=== PATIENT | female | born 1965 | race African-American/Black ===

== ENCOUNTER 2022-04-23 09:06 | Outpatient (CLI) | payer OTHER, SELFPAY ==
--- NOTE | ~2022-04-23 | US_ITS ---
EXAMINATION: US thyroid DATE: 04/23/2022 09:43 INDICATION: Goiter TECHNIQUE: Multiple ultrasound images of the thyroid were obtained. COMPARISON: None. FINDINGS: The right thyroid lobe measures 5.8 x 2.5 x 2.8 cm. The left thyroid lobe measures 5.9 x 2.2 x 2.6 c m. There are multiple thyroid nodules with similar imaging features which are wider than tall, hypoe choic predominantly solid with smooth margins and without echogenic foci (TI-RADS 4, moderately suspi cious , FNA if >=1.5 cm, annual followup is >=1 cm). The largest nodules measure 2.0 cm nodule in the inferior right thyroid and 2.4 cm nodule in the left thyroid identified. There are couple additional subcentimeter nodules measuring 8 mm the inferior most right thyroid lobe and 4 mm the thyroid isthm us. There is normal echotexture, echogenicity and vascular flow throughout the surrounding thyroid gl and. IMPRESSION: 1. There are a few TI RADS 4 thyroid nodules the largest 2 measuring 2.0 cm in the right thyroid and 2.4 cm in the left thyroid which meet criteria for biopsy which would be recommended. Reviewed, dictated and finalized at location A. ER DEVELOPMENT COORDINATOR/TEACHER
[2022-04-23 10:16] LABS: Creatinine Urine 147.5 mg/dL
[2022-04-23 10:18] LABS: Hemoglobin A1C 8.7 % (<5.7)
[2022-04-23 10:21] LABS: MALB Creatinine Ratio 5.2 mg/g (0-30); Microalbumin Urine Random 7.6 mg/L (0-16.7)
[2022-04-23 10:27] LABS: Albumin Level 4.7 g/dL (3.5-5.1); Alkaline Phosphatase 74 U/L (38-126); Aspartate Amino Transferase 21 U/L (14-36); Bilirubin,Total 0.4 mg/dL (0.2-1.3); Blood Urea Nitrogen 15 mg/dL (7-17); Calcium 9.2 mg/dL (8.4-10.2); Carbon Dioxide 27 mmol/L (22-30); Cholesterol 88 mg/dL (0-200); Estimated Glomerular Filt Rate > 60; Glucose 157 mg/dL (65-110); HDL Direct 41 mg/dL; Triglycerides 99 mg/dL (<150)
[2022-04-23 10:45] LABS: Alanine Aminotransferase 19 U/L (6-35); Anion Gap 8 mmol/L (8-16); Chloride 104 mmol/L (98-107); Potassium 4.2 mmol/L (3.4-5.0); Sodium 139 mmol/L (137-145)
[2022-04-23 11:39] LABS: LDL Cholesterol Direct < 30 mg/dL
== END 2022-04-23 09:07 | disposition home or self-care (01) ==
PROVIDERS: PCP Internal Medicine Infectious Disease; Visit Provider Internal Medicine Endocrinology, Diabetes & Metabolism
DX: E04.9 Nontoxic goiter, unspecified (principal); E11.65 Type 2 diabetes mellitus with hyperglycemia; E78.5 Hyperlipidemia, unspecified
CPT/HCPCS: 36415; 76536; 80053; 80061; 82043; 83036; 84439; 84443

== ENCOUNTER 2022-07-02 07:33 | Outpatient (CLI) | payer OTHER, SELFPAY ==
--- NOTE | 2022-07-02 | EST_ITS ---
Patient Info Name: Eliana Bender Age: 57 years : 1965 Gender: Female Ht: 64 in Wt: 193 lbs BSA: 2.02 m2 HR: 85 bpm BP: 128 / 68 mmHg Heart Rhythm: Sinus Rhythm Exam Date: 07/02/2022 7:48 AM Exam Location: [facility] Stress Patient Status: Outpatient Admit Date: 07/02/2022 Staff Ordering Physician: EliceoYen MD Attending Provider: EliceoYen MD Exercise Technologist: Shantell Del Rosario CT Nurse: SANDHYA CHING Exam Type: CA stress test treadmill Study Info Indications - DIABETES A treadmill exercise stress test was performed. Summary 1. No abnormal ST/T wave changes diagnostic of ischemia with exercise. 2. Single PVC noted during stress. 3. Exercise capacity fair to good at 6-10 METS. 4. Hypertensive blood pressure response during exercise. Protocol: Min Stress ECG Details Stage: REST Duration (min): 1 min : 26 sec Speed (mph): 0.0 Grade (%): 0 HR (bpm): 82 SBP (mmHg): 128 DBP (mmHg): 68 METS: --- Stage: REST Duration (min): 41 min : 57 sec Speed (mph): 0.0 Grade (%): 0 HR (bpm): 78 SBP (mmHg): 128 DBP (mmHg): 68 METS: --- Stage: STAGE 1 Duration (min): 1 min : 0 sec Speed (mph): 1.7 Grade (%): 10 HR (bpm): 112 SBP (mmHg): 128 DBP (mmHg): 68 METS: --- Stage: STAGE 1 Duration (min): 2 min : 0 sec Speed (mph): 1.7 Grade (%): 10 HR (bpm): 120 SBP (mmHg): 128 DBP (mmHg): 68 METS: --- Stage: STAGE 1 Duration (min): 3 min : 0 sec Speed (mph): 1.7 Grade (%): 10 HR (bpm): 125 SBP (mmHg): 153 DBP (mmHg): 84 METS: --- Stage: STAGE 2 Duration (min): 1 min : 0 sec Speed (mph): 2.5 Grade (%): 12 HR (bpm): 132 SBP (mmHg): 153 DBP (mmHg): 84 METS: --- Stage: STAGE 2 Duration (min): 2 min : 0 sec Speed (mph): 2.5 Grade (%): 12 HR (bpm): 138 SBP (mmHg): 153 DBP (mmHg): 84 METS: --- Stage: STAGE 2 Duration (min): 3 min : 0 sec Speed (mph): 2.5 Grade (%): 12 HR (bpm): 142 SBP (mmHg): 207 DBP (mmHg): 89 METS: --- Stage: RECOVERY Duration (min): 0 min : 59 sec Speed (mph): 0.0 Grade (%): 0 HR (bpm): 112 SBP (mmHg): 207 DBP (mmHg): 89 METS: --- Stage: RECOVERY Duration (min): 1 min : 59 sec Speed (mph): 0.0 Grade (%): 0 HR (bpm): 96 SBP (mmHg): 207 DBP (mmHg): 89 METS: --- Stage: RECOVERY Duration (min): 2 min : 59 sec Speed (mph): 0.0 Grade (%): 0 HR (bpm): 95 SBP (mmHg): 132 DBP (mmHg): 81 METS: --- Stage: RECOVERY Duration (min): 3 min : 1 sec Speed (mph): 0.0 Grade (%): 0 HR (bpm): 96 SBP (mmHg): 132 DBP (mmHg): 81 METS: --- Rest HR: 78 bpm Peak HR: 143 bpm Rest Sys BP: 128 mmHg Peak Sys BP: 207 mmHg Max Pred HR: 161 bpm % Max Pred HR: 89 % Target HR: 137 bpm Max RPP:
== END 2022-07-02 07:34 | disposition home or self-care (01) ==
LOC: ANHCARD 07:36
PROVIDERS: PCP Internal Medicine Infectious Disease; Visit Provider Internal Medicine Endocrinology, Diabetes & Metabolism
DX: Z91.89 Other specified personal risk factors, not elsewhere classified (principal)
CPT/HCPCS: 93017

== ENCOUNTER 2022-07-04 09:36 | Outpatient (CLI) | payer OTHER, SELFPAY ==
--- NOTE | ~2022-07-04 | US_ITS ---
EXAMINATION: 1. US FNA w image guidance 2. US FNA additional DATE: 07/04/2022 10:55 INDICATION: Multinodular goiter. TECHNIQUE: The procedure and its benefits and risks were discussed with the patient. Risks specifically discusse d included bleeding. The patient verbalized understanding of the risks and agreed to proceed. The nec k was prepped and draped in the usual sterile manner. 1% lidocaine was used for local anesthesia. 6 passes were made with a 25G needle into the lesion in right thyroid lobe under ultrasound guidance. 6 passes were made with a 25-gauge needle into the lesion in left thyroid lobe under ultrasound tori nce. There were no immediate complications. FINDINGS: Grayscale ultrasound images demonstrate needles advanced into a 2.0 cm nodule in right thyroid lobe f or biopsy. Grayscale ultrasound images demonstrate needles advanced into a 2.4 cm nodule in left thyr oid lobe for biopsy. IMPRESSION: 1. Ultrasound-guided fine needle aspiration of a right thyroid nodule. 2. Ultrasound-guided fine-needle aspiration of a left thyroid nodule. Reviewed, dictated and finalized at location A. ONAL FINANCE INSTRUCTOR IMPRESSION: 1. Ultrasound-guided fine needle aspiration of a right thyroid nodule. 2. Ultrasound-guided fine-needle aspiration of a left thyroid nodule.
== END 2022-07-04 09:37 | disposition home or self-care (01) ==
LOC: ANHIMG 09:42
PROVIDERS: PCP Internal Medicine Infectious Disease; Visit Provider Internal Medicine Endocrinology, Diabetes & Metabolism
DX: E04.2 Nontoxic multinodular goiter (principal)
CPT/HCPCS: 10005; 10006; 88173; 88305

== ENCOUNTER 2022-09-03 08:01 | Outpatient (CLI) | payer OTHER, SELFPAY ==
[2022-09-19 08:16] LABS: Dexamethasone 326 ng/dL
== END 2022-09-03 08:02 | disposition home or self-care (01) ==
PROVIDERS: PCP Internal Medicine Infectious Disease; Visit Provider Internal Medicine Endocrinology, Diabetes & Metabolism
DX: R63.5 Abnormal weight gain (principal)
CPT/HCPCS: 36415; 80299; 82533

== ENCOUNTER 2022-09-03 08:27 | Outpatient (CLI) | payer OTHER, SELFPAY ==
--- NOTE | ~2022-09-03 | MM_ITS ---
EXAMINATION: MM screening bashir BI w lita HISTORY: Screening mammogram TECHNIQUE: Craniocaudal and mediolateral oblique 3-D tomosynthesis images were obtained and synthetic 2-D images were generated. CAD analysis was submitted and interpreted. COMPARISON: No prior mammogram is available for comparison at this institution. BREAST PARENCHYMAL COMPOSITION: There are scattered areas of fibroglandular density. FINDINGS: There are bilateral rest masses with the appearance of intramammary lymph nodes. No suspici ous mass, calcification, or architectural distortion are identified in either breast to suggest malig garrett. IMPRESSION: 1. No mammographic evidence of malignancy. 2. Recommend routine screening mammography in one year. BI-RADS Category 2: Benign finding(s). Reviewed, dictated and finalized at location A.
== END 2022-09-03 08:28 | disposition home or self-care (01) ==
LOC: ANHIMG 08:29
PROVIDERS: PCP Internal Medicine Infectious Disease; Visit Provider Internal Medicine Infectious Disease
DX: Z12.31 Encounter for screening mammogram for malignant neoplasm of breast (principal)
CPT/HCPCS: 77063; 77067

== ENCOUNTER 2023-05-14 07:00 | Outpatient (NON) | payer OTHER, SELFPAY | END 2023-05-14 07:01 | disposition home or self-care (01) | PROVIDERS: PCP Internal Medicine Infectious Disease; Visit Provider Internal Medicine Gastroenterology | DX: Z12.11 Encounter for screening for malignant neoplasm of colon (principal) | CPT/HCPCS: 88305 ==

== ENCOUNTER 2023-05-14 07:10 | Day surgery (SDC) | payer OTHER, SELFPAY ==
[2023-04-25 09:24] VITALS: BMI 34.8
[2023-05-06 08:44] VITALS: BMI 34.8
[2023-05-14 08:13] VITALS: BMI 34.8
[2023-05-14 08:14] VITALS: BP 128/82; PULSE 98; RESP 16; TEMP 36.8; O2SAT 99
[2023-05-14 08:24] LABS: Glucose Point of Care 206 mg/dl (65-105)
[2023-05-14] MEDS: LACTATED RINGERS 1,000 ML 150 ML IV CONT (08:26)
--- NOTE | 2023-05-14 08:27 | SUR.PREOP ---
DR ROGERS NOTIFIED OF PT'S BLOOD SUGAR OF 206.
--- NOTE | 2023-05-14 08:32 | P.PNAN_ITS ---
Anes - Initial Pre Proc Eval Procedure: Operation Date: 05/14/23 09:30 Proposed Procedures p Screening Colonoscopy - Madhu Guerrero MD Date/Time: 05/14/23 08:32 Surgeon: Madhu Guerrero MD Pre Op Diagnosis: Neoplasm Screening Patient Data Age: 58 Gender: F Height: 1.63 m Weight: 92.1 kg Last Vital Signs Temp 36.8 C 05/14/23 08:14 Pulse 98 05/14/23 08:14 Resp 16 05/14/23 08:14 BP 128/82 05/14/23 08:14 Pulse Ox 99 05/14/23 08:14 O2 Del Method Room Air 05/14/23 08:14 Allergies Allergy/AdvReac Type Severity Reaction Status Date / Time No Known Allergies Allergy Unknown Verified 05/14/23 08:08 Home Medications Medication Instructions Recorded Confirmed Type glimepiride 1 mg tablet 1 mg PO BID 05/06/23 05/14/23 History losartan 50 mg tablet 50 mg PO DAILY 05/06/23 05/14/23 History metformin 1,000 mg tablet 1,000 mg PO BID 05/06/23 05/14/23 History rosuvastatin 10 mg tablet 10 mg PO DAILY 05/06/23 05/14/23 History Laboratory Tests 05/14/23 08:21 POC Capillary Glucose 206 H mg/dl (65-105) Patient hx anesthesia problems: none Family hx anesthesia problems: none Results Review: All pre-operative results and documents have been reviewed as part of the pre- operative evaluation. [facility] Social History Social History Smoking status: Never smoker Alcohol intake: never Substance use: never Substance use type: does not use Living arrangements: with family Spiritual care concerns: No Anes - Eval Final PreProcedure Day of Procedure 05/14/23 08:32 Patient weight: normal Heart: regular rate and rhythm Lungs: clear to auscultation Airway: Mallampati scale class II Neurological: alert and oriented Last oral intake: >/= 8 hours ASA classification: III Emergent: no Anesthetic plan: proceed Anesthesia type and monitoring: general GIVS and standard monitoring Results Review: All pre-operative results and documents have been reviewed as part of the pre- operative evaluation. Informed Consent: The patient's anesthetic plan and its attendant risks and benefits were discussed with the patient/family/POA. Questions were solicited and answers provided to the satisfaction of the patient/family/POA.
--- NOTE | 2023-05-14 08:48 | PM.HPGS ---
History of Present Illness History of Present Illness Consent: Risks, benefits, and alternatives have been discussed and questions answered. Patient agrees to proceed with procedure. Chief complaint: Neoplasm Screening Narrative: Elaina Bender is a 58 year old female presents for screening colonoscopy. Patient's current it and bowel movements are normal. Patient is abdominal pain. She has had no bleeding. Family history significant for several family members with colon polyps. Has no family members with colon cancer. She presents today for screening colonoscopy. Review of Systems Review of Systems: Review of systems noncontributory. [facility] Social History Social History Smoking status: Never smoker Alcohol intake: never Substance use: never Substance use type: does not use Living arrangements: with family Spiritual care concerns: No Meds Home Medications and Allergies Home Medications Medication Instructions Recorded Confirmed Type glimepiride 1 mg tablet 1 mg PO BID 05/06/23 05/14/23 History losartan 50 mg tablet 50 mg PO DAILY 05/06/23 05/14/23 History metformin 1,000 mg tablet 1,000 mg PO BID 05/06/23 05/14/23 History rosuvastatin 10 mg tablet 10 mg PO DAILY 05/06/23 05/14/23 History Allergies Allergy/AdvReac Type Severity Reaction Status Date / Time No Known Allergies Allergy Unknown Verified 05/14/23 08:08 Vital Signs Vital Signs - 24 hr 05/14/23 08:14 Temperature 98.2 F Pulse Rate 98 Respiratory Rate 16 Blood Pressure 128/82 Pulse Oximetry 99 Oxygen Delivery Room Air Exam Narrative: Physical exam reveals patient to be alert. Vital signs stable. HEENT exam is unremarkable. Patient is anicteric. Lungs are clear to auscultation and percussion. Heart is without murmur or extra sounds. Abdomen bowel sounds are present soft nontender with no organomegaly. Digital external rectal exam is normal. Assessment and Plan Assessment and plan (1) Encounter for screening colonoscopy: Code(s): Z12.11 - Encounter for screening for malignant neoplasm of colon Status: Acute Assessment and Plan: Patient presents today for screening colonoscopy. Further recommendations may be given after endoscopy
[2023-05-14 09:53] VITALS: BP 104/68; PULSE 82; RESP 12; O2SAT 100
[2023-05-14 10:03] VITALS: BP 105/82; PULSE 73; RESP 12; O2SAT 99
[2023-05-14 10:13] VITALS: BP 125/84; PULSE 71; RESP 14; O2SAT 100
--- NOTE | 2023-05-14 10:38 | WPDANESPN ---
Anes - Prog Note Post-Op Date/Time: 05/14/23 10:38 Cardiovascular status: normal Respiratory status: normal Airway patency: baseline Mental status: baseline Post-Op hydration status: normal Vital Signs: Last Vital Signs Temp 36.8 C 05/14/23 08:14 Pulse 71 05/14/23 10:13 Resp 14 05/14/23 10:13 BP 125/84 05/14/23 10:13 Pulse Ox 100 05/14/23 10:13 O2 Del Method Room Air 05/14/23 10:13 Pain Score (VAS): 0 I/O: Intake & Output 05/13/23 05/14/23 05/14/23 23:59 07:59 15:59 Intake Total 650 Balance 650 05/14/23 08:21 POC Capillary Glucose 206 H Patient Feedback: Patient satisfied with anesthetic care.
== END 2023-05-14 10:32 | disposition home or self-care (01) ==
PROVIDERS: PCP Internal Medicine Infectious Disease; Visit Provider Internal Medicine Gastroenterology
PROC: 0DJD8ZZ Inspection of Lower Intestinal Tract, Via Natural or Artificial Opening Endoscopic (ICD-10-PCS; CPT 45378; principal; 2023-05-14 09:30)
DX: Z12.11 Encounter for screening for malignant neoplasm of colon (principal); D12.2 Benign neoplasm of ascending colon; K64.8 Other hemorrhoids
CPT/HCPCS: 45385

== ENCOUNTER 2024-07-13 10:29 | Outpatient (CLI) | payer OTHER, SELFPAY ==
--- NOTE | ~2024-07-13 | US_ITS ---
Thyroid ultrasound. Clinical History: Thyroid nodule COMPARISON: 04/23/2022 Findings: Real-time sonography of the thyroid gland was performed. The right lobe measures 5.7 x 2.6 x 2.7 cm. The left lobe measures 6.4 x 2.6 x 2.6 cm. The isthmus is 6 mm in AP diameter. There is a 2.0 x 1.1 x 1.9 cm heterogeneous, mixed echogenicity nodule in the right lower pole. There is an additional 0.6 cm probable spongiform nodule at the right upper pole. There is a 2.3 x 1.9 x 2.1 cm hypoechoic solid nodule at the left lower pole. Impression: Stable bilateral thyroid nodules, as detailed above. The 2 dominant nodules were both previously biop sied, with benign results. Reviewed, dictated and finalized at location . Impression: Stable bilateral thyroid nodules, as detailed above. The 2 dominant nodules wer e both previously biopsied, with benign results.
--- OUTSIDE RECORDS SUMMARY | 2024-07-13 11:52 | XMS_ITS | Referral Summary ---
Author Organization [facility] Address [address] [place] [id number] Care Team Providers Care Staff Pharmacist Name Role Phone Cedrick Coyle MD Primary Care Provider Encounters Date Type Department Care Team Description 06/04/2024 Orders Only [facility] at [address] [place] [phone] ProviderAlisha MD 05/06/2024 8:00 AM MANAGER INSTALLATION Office Visit [facility]ocrine Care at [address] [place] [phone] Vera Bentley, Type 2 diabetes mellitus with hyperglycemia, without long-term current use of insulin (HCC) (Primary Dx); Hypertension associated with type 2 diabetes mellitus (HCC); Hyperlipidemia associated with type 2 diabetes mellitus (HCC); Thyroid nodule from Last 3 Months Allergies Active Allergy Reactions Criticality Noted Date Comments Lisinopril Unknown 02/03/2024 Medications losartan (COZAAR) 50 mg tablet Take 1 tablet (50 mg total) by mouth every morning Active rosuvastatin (CRESTOR) 10 mg tablet Take 1 tablet (10 mg total) by mouth daily Active metFORMIN (GLUCOPHAGE) 1,000 mg tablet Take 1 tablet (1,000 mg total) by mouth 2 (two) times a day with meals Active ergocalciferol, vitamin D2, (VITAMIN D2 ORAL) Active semaglutide (Ozempic) 1 mg/dose (4 mg/3 mL) pen injector injectionIndica tions:type 2 diabetes mellitus Inject 1 mg under the skin every 7 days 9 mL 3 05/06/2024 Active Active Problems No known active problems Social History Tobacco Use Types Packs/Day Years Used Date Smoking Tobacco: Never Tobacco Cessation:Counseling Given: Not Answered Comments Unknown Sex and Gender Information Value Date Recorded Sex Assigned at Not on file Legal Sex Female 12:03 PM CDT Gender Identity Not on file Sexual Orientation Not on file Last Filed Vital Signs Vital Sign Reading Time Taken Comments Blood Pressure 118/74 05/06/2024 8:06 AM MANAGER INSTALLATION Pulse 83 05/06/2024 8:06 AM MANAGER INSTALLATION Temperature - - Respiratory Rate - - Oxygen Saturation - - Inhaled Oxygen Concentration - - Weight 82.6 kg (182 lb 1.6 oz) 05/06/2024 8:06 A M MANAGER INSTALLATION Height 162.6 cm (5' 4 ) 05/06/2024 8:06 AM MANAGER INSTALLATION Body Mass Index 31.26 05/06/2024 8:06 AM MANAGER INSTALLATION Plan of Treatment Not on file Procedures Procedure Name Priority Date/Time Associated Diagnosis Comments US GUIDED THYROID FINE NEEDLE ASPIRATION 1ST LESION Schedule Routine, Read Routine (OP Routine) 06/04/2024 2:29 PM MANAGER INSTALLATION POCT HEMOGLOBIN A1C Routine 05/06/2024 8:11 AM MANAGER INSTALLATION Type 2 diabetes mellitus with hyperglycemia, without long-term current use of insulin (HCC) EGFR Routine 02/03/2024 8:58 AM CDT Type 2 diabetes mellitus without complication, without long-term current use of insulin (HCC) LIPID PANEL Routine 02/03/2024 8:58 AM CDT Type 2 diabetes mellitus without complication, without long-term current use of insulin (HCC) ALBUMIN CREATININE RATIO, URINE Routine 02/03/2024 8:58 AM CDT Type 2 diabetes mellitus without complication, without long-term current use of insulin (HCC) RETINAVUE SCANNER - OU - BOTH EYES Routine 02/03/2024 Type 2 diabetes mellitus without complication, without long-term current use of insulin (HCC) from Last 3 Months or Most Recently Relevant to Health Maintenance Results * US Guided Thyroid Fine Needle Aspiration 1st Lesion (06/04/2024 2:29 PM MANAGER INSTALLATION) Anatomical Region Laterality Modality Thyroid N/A Ultrasound Historical Provider MD WAY US PROCEDURES Final R esult * POCT hemoglobin A1c (05/06/2024 8:11 AM MANAGER INSTALLATION) Hemoglobin A1C, POC 7.3 4.0 - 5.6 % Blood 05/06/2024 8:11 AM MANAGER INSTALLATION Vera Bentley DO POINT OF CARE TEST ORDERABL ES Final Result * eGFR (02/03/2024 8:58 AM CDT) eGFR 87 >=60 mL/min/1. 73 m2 Comment: Interpretive Data Reference Interval Normal >/= 90 mL/min/1.73m2 Mildly decreased* 60 - 89 mL/min/1.73m2 Mildly to moderately decreased 45 - 59 mL/min/1.73m2 Moderately to severely decreased 30 - 44 mL/min/1.73m2 Severely decreased 15 - 29 mL/min/1.73m2 Kidney Failure < 15 mL/min/1.73m2 *Relative to young adult level Estimated glomerular filtration rate is determined by the 2020 CKD-EPI equation recommended by the National Kidney Foundation (A Unifying Approach to GFR Estimation: Recommendations of the NKF-ASK Task Force on Reassessing the Inclusion of Race in Diagnosing Kidney Disease, JASN 2020). The CKD-EPI equation should not be used for patients with unstable renal function and has not been validated in children and those over 70. Current interpretive data was last reviewed 2021. Blood 02/03/2024 8:58 AM CDT 02/03/2024 6:03 PM CDT Vera Bentley DO LAB BLOOD ORDERABLES Final Result JOSE [id number] [place] [address] * Albumin Creatinine Ratio, Urine (02/03/2024 8:58 AM CDT) Albumin Ur <12.0 mg/L Comment: Interpretive Data No reference range established. Current interpretive data was last revised 2018. Creatinine Ur 224.5 mg/dL [facility] Comment: Interpretive Data No reference range established. Current interpretive data was last revised 2018. Albumin Creatinine Ratio, Ur <5 1 - 29 mg/g JOSE Urine 02/03/2024 8:58 AM CDT 02/03/2024 6:00 PM CDT us Vera Bentley DO LAB URINE ORDERABLES Final Result JOSE [id number] [place] [address] * Lipid panel (02/03/2024 8:58 AM CDT) Cholesterol 96 30 - 199 mg/dL Comment: Interpretive Data Ages < or = 19 years Acceptable: <170 mg/dL Borderline high: 170-199 mg/dL High: >or= 200 mg/dL Ages > or = 20 years Desirable: <200 mg/dL Borderline high: 200-239 mg/dL High: >or= 240 mg/dL Literature References: 1. Expert Panel on Integrated Guidelines for Cardiovascular Health and Risk Reduction in Children and Adolescents. Pediatrics 2011;128:S213 2. NCEP Expert Panel. Circulation 2004;110:227 Current Interpretive Data was last revised on 2017. Triglycerides 93 <=149 mg/dL JOSE Comment: Interpretive Data Ages < or = 9 years Acceptable: <75 mg/dL Borderline high: 75-99 mg/dL High: >or= 100 mg/dL Ages 10 to 20 years Acceptable: <90 mg/dL Borderline high: 90-129 mg/dL High: >or= 130 mg/dL Ages > or = 20 years Desirable: <150 mg/dL Borderline high: 150-199 mg/dL High: 200-499 mg/dL Very high: >or= 499 mg/dL Literature References: 1. Expert Panel on Integrated Guidelines for Cardiovascular Health and Risk Reduction in Children and Adolescents. Pediatrics 2011;128:S213 2. NCEP Expert Panel. Circulation 2004;110:227 Current Interpretive Data was last revised on 2017. HDL 47 >=40 mg/dL JOSE DAVIS Comment: Interpretive Data Ages < or = 19 years Acceptable: >45 mg/dL Borderline low: 40-45 mg/dL Low: <40 mg/dL Ages > or = 20 years Desirable: >or= 60 mg/dL Low: <40 mg/dL Literature References: 1. Expert Panel on Integrated Guidelines for Cardiovascular Health and Risk Reduction in Children and Adolescents. Pediatrics 2011;128:S213 2. NCEP Expert Panel. Circulation 2004;110:227 Current Interpretive Data was last revised on 2017. LDL, calculated 31 <=129 mg/dL JOSE DAVIS Comment: Interpretive Data Ages < or = 19 years Acceptable: <110 mg/dL Borderline high: 110-129 mg/dL High: >or= 130 mg/dL Ages > or = 20 years Optimal: <100 mg/dL Near optimal: 100-129 mg/dL Borderline high: 130-159 mg/dL High: >160 mg/dL Calculated using the Kirk LDL-C estimating equation. This equation was implemented on 2023. Prior to this date LDL-C was estimated using the Friedewald equation. Literature References: 1. Expert Panel on Integrated Guidelines for Cardiovascular Health and Risk Reduction in Children and Adolescents. Pediatrics 2011;128:S213 2. NCEP Expert Panel. Circulation 2004;110:227 3. Kirk Medrano et al. PADMINI Cardiol. 2019August 26;5(5):540-548. doi: 10.1001/[email or web address] Current Interpretive Data was last revised on 2023. Non-HDL Cholesterol 49 mg/dL JOSE DAVIS Comment: Interpretive Data Ages < or = 19 years Acceptable: <120 mg/dL Borderline high: 120-144 mg/dL High: >145 mg/dL Ages > or = 20 years When triglycerides are >200 mg/dL, Non-HDL cholesterol is a secondary target of therapy with treatment goals that are 30 mg/dL greater than the LDL cholesterol target. Literature References: 1. Expert Panel on Integrated Guidelines for Cardiovascular Health and Risk Reduction in Children and Adolescents. Pediatrics 2011;128:S213 2. NCEP Expert Panel. Circulation 2004;110:227 Current Interpretive Data was last revised on 2017. Chol/HDL ratio 2 JOSE CH Blood 02/03/2024 8:58 AM CDT 02/03/2024 6:00 PM CDT Narrative JOSE DAVIS - 02/03/2024 8:00 PM CDT These lab test should be done fasting. This means do not eat or drink for at least 12 hours prior to getting your blood drawn. Vera Bentley DO LAB BLOOD ORDERABLES Final Result JOSE DAVIS [id number] [place] [address] * (ABNORMAL) RetinaVue Scanner - OU - Both Eyes (02/03/2024) Anatomical Region Laterality Modality Head Fundus Photograp hy 02/03/2024 Vera Bentley DO OPHTH PHOTOGRAPHY Final Res ult from Last 3 Months or Most Recently Relevant to Health Maintenance Insurance T [place] [id number] IDMN [facility] Care Teams Staff Pharmacist Relationship Specialty Start [place] [address] [place] [id number] PCP - General Internal Medicine 01/21/22
--- OUTSIDE RECORDS SUMMARY | 2024-07-13 11:52 | XMS_ITS | Clinical Summary ---
Author Organization [facility] Address [address] [place] [id number] Care Team Providers Care Health Care Specialist Name Role Phone Cedrick Coyle MD Primary Care Provider Allergies Active Allergy Reactions Criticality Noted Date [...] Active Active Problems No known active problems Encounters Date Type Department Care Team Description 06/04/[address] [facility] at [address] [phone] ProviderAlisha MD 05/06/2024 8:00 AM ADJUNCT PSYCHOLOGY INSTRUCTOR Office Visit [facility] at [address] [phone] Vera Bentley, Type 2 diabetes mellitus with hyperglycemia, without long-term current use of insulin (HCC) (Primary Dx); Hypertension associated with type 2 diabetes mellitus (HCC); Hyperlipidemia associated with type 2 diabetes mellitus (HCC); Thyroid nodule from Last 3 Months Family History Medical History Relation Name Comments Diabetes Mother Hypertension Mother Thyroid disease Mother Cancer Sister Diabetes Sister Relation Name Status Comments Mother Sister Social History Tobacco Use Types Packs/Day Years Used Date Smoking Tobacco: Never Tobacco Cessation:Counseling Given: Not Answered Comments Unknown Sex and Gender Information Value Date Recorded Sex Assigned at Not on file Legal Sex Female 12:03 PM CDT Gender Identity Not on file Sexual Orientation Not on file Obstetrics History Last Filed Vital Signs Vital Sign Reading Time Taken Comments Blood Pressure 118/74 05/06/2024 8:06 AM ADJUNCT PSYCHOLOGY INSTRUCTOR Pulse 83 05/06/2024 8:06 AM ADJUNCT PSYCHOLOGY INSTRUCTOR Temperature - - Respiratory Rate - - Oxygen Saturation - - Inhaled Oxygen Concentration - - Weight 82.6 kg (182 lb 1.6 oz) 05/06/2024 8:06 A M ADJUNCT PSYCHOLOGY INSTRUCTOR Height 162.6 cm (5' 4 ) 05/06/2024 8:06 AM ADJUNCT PSYCHOLOGY INSTRUCTOR Body Mass Index 31.26 05/06/2024 8:06 AM ADJUNCT PSYCHOLOGY INSTRUCTOR Plan of Treatment Health Maintenance Due Date Last Done Comments Breast Cancer Screening-Mammogram 1965 Cervical Cancer Screening 1963 Colon Cancer Screening-Colonoscopy 1963 Depression Screening 1963 Hepatitis C Screening 1963 Hepatitis B Screening 1981 Regular Well Visit/Exam 18-64 1981 Zoster Vaccine (1 of 2) 2013 Pneumococcal vaccine <65 (2 of 2 - PCV) 01/13/2018 01/13/2017 Covid-19 Vaccine ( - season) 12/28/202308/2020, 03/11/2021 Influenza Vaccine (#1) 2023 2, 02/11/2018, 01/13/2017 Hemoglobin A1C 11/03/2024 05/06/2024, 02/03/2024 Albumin Creatinine Ratio, Urine 02/02/2025 Dilated Eye Exam 02/02/2025 02/03/2024 Lipid Panel 02/02/2025 02/03/2024 eGFR 02/02/2025 02/03/2024 Foot Exam 05/06/2025 05/06/2024, 02/03/2024 DTaP/Tdap/Td Vaccine (2 - Td or Tdap) 02/12/2028 Procedures Procedure Name Priority Date/Time Associated Diagnosis Comments US GUIDED THYROID FINE NEEDLE ASPIRATION 1ST LESION Schedule Routine, Read Routine (OP Routine) 06/04/2024 2:29 PM ADJUNCT PSYCHOLOGY INSTRUCTOR POCT HEMOGLOBIN A1C Routine 05/06/2024 8:11 AM ADJUNCT PSYCHOLOGY INSTRUCTOR Type 2 diabetes mellitus with hyperglycemia, without [...] Needle Aspiration 1st Lesion (06/04/2024 2:29 PM ADJUNCT PSYCHOLOGY INSTRUCTOR) Anatomical Region Laterality Modality Thyroid N/A Ultrasound Historical Provider MD WAY US PROCEDURES Final R esult * POCT hemoglobin A1c (05/06/2024 8:11 AM ADJUNCT PSYCHOLOGY INSTRUCTOR) Hemoglobin A1C, POC 7.3 4.0 - 5.6 % Blood 05/06/2024 8:11 AM ADJUNCT PSYCHOLOGY INSTRUCTOR Vera Bentley DO POINT OF CARE TEST [...] Bentley DO LAB BLOOD ORDERABLES Final Result Performing Organization Address [facility] de Phone Number [facility] [id number] Department [place] [address] * Albumin Creatinine Ratio, Urine (02/03/2024 8:58 AM CDT) Albumin Ur <12.0 mg/L Comment: Interpretive Data No reference range established. Current interpretive data was last revised 2018. Creatinine Ur 224.5 mg/dL JOSE Comment: Interpretive Data No reference range established. Current interpretive data was last revised 2018. Albumin Creatinine Ratio, Ur <5 1 - 29 mg/g JOSE Urine 02/03/2024 8:58 AM CDT 02/03/2024 6:00 PM CDT Christaok Mukesh Bentley DO LAB URINE ORDERABLES Final Result Performing Organization Address City/[facility]/ZIP Co de Phone Number JOSE DAVIS [id number] [facility] Department [place] [address] * Lipid panel (02/03/2024 8:58 AM CDT) [...] on 2017. Triglycerides 93 <=149 mg/dL JOSE DAVIS Comment: Interpretive Data Ages [...] NCEP Expert Panel. Circulation 2004;110:227 3. Kirk M et al. PADMINI Cardiol. 2020 August 26;5(5):540-548. doi: 10.1001/jamacardio.2020.0013 Current Interpretive Data was [...] revised on 2017. Chol/HDL ratio 2 JOSE DAVIS Blood 02/03/2024 8:58 AM CDT 02/03/2024 6:00 PM CDT Narrative JOSE - 02/03/2024 8:00 PM CDT These lab test should be done fasting. This means do not eat or drink for at least 12 hours prior to getting your blood drawn. Vera Bentley DO LAB BLOOD ORDERABLES Final Result JOSE DAVIS [id number] Department [place] [address] * (ABNORMAL) RetinaVue Scanner - OU - Both Eyes (02/03/2024) Anatomical Region Laterality Modality Head Fundus Photograp hy 02/03/2024 Vera Bentley DO OPHTH PHOTOGRAPHY Final Res ult from Last 3 Months or Most Recently Relevant to Health Maintenance Insurance [facility] [id number] [facility] Care Teams Health Care Specialist Relationship Specialty [place] [address] [place] [id number] PCP - General Internal Medicine 01/21/22
--- OUTSIDE RECORDS SUMMARY | 2024-07-13 11:52 | XMS_ITS | Clinical Summary ---
Author Organization [facility] Address [address] [place] [id number] Care Team Providers Care Promotions Associate Name Role Phone Ronny Prery MD Primary Care Provider Justin garg Social History Tobacco Use Types Packs/Day Years Used Date Smoking Tobacco: Never Assessed Comments Unknown Sex and Gender Information Value Date Recorded Sex Assigned at Not on file Legal Sex Female 5:53 PM CDT Gender Identity Not on file Sexual Orientation Not on file Last Filed Vital Signs Vital Sign Reading Time Taken Comments Blood Pressure 148/96 08/24/2015 9:16 AM CDT Pulse 93 08/24/2015 9:16 AM CDT Temperature - - Respiratory Rate - - Oxygen Saturation - - Inhaled Oxygen Concentration - - Weight 103.9 kg (229 lb) 08/24/2015 9:16 AM CDT Height 162.6 cm (5' 4 ) 08/24/2015 9:16 AM CDT Body Mass Index 39.31 08/24/2015 9:16 AM CDT Plan of Treatment Health Maintenance Due Date Last Done Comments Cervical Cancer Screening Pa p Smear (Age 30 to 64) Every 3 Years 1963 Colorectal Cancer Screening Colonoscopy (10 Years) 1963 Annual Physical 1966 Hepatitis C 1981 DTaP, Tdap and Td Vaccines ( 1 - Tdap) 1982 Cervical Cancer Screening Pa p with HPV Testing (Age 30 to 64) Every 5 Years 1993 Cervical Cancer Screening with HPV 1993 Mammogram Screening 2003 Zoster Vaccines (1 of 2) 2013 COVID-19 Vaccine (2023-2 5 season) 2023 Influenza Adult (#1) 2024 RSV Immunization or 60+ Years (1 - 1-dose 75+ series) 2038 Meningococcal B Vaccine Aged Out No l onger eligible based on patient's age to complete this topic Meningococcal Vaccine Aged Out No calli tammi eligible based on patient's age to complete this topic Pneumococcal Vaccine: Pediat rics (0 to 5 Years) and At-Risk Patients (6 to 64 Years) Aged Out No longer eligible b ased on patient's age to complete this topic RSV Immunizations Under 20 Months Aged Out No longer eligible based on patient's age to complete this topic Care Teams Promotions Associate Relationship Specialty Start Date End Date Ronny Perry MD PCP - General 09/26/14
--- OUTSIDE RECORDS SUMMARY | 2024-07-13 11:53 | XMS_ITS | Data Portability ---
Author Organization [facility] Boyd Alvarado Address [address] [address] Care Team Providers Care Livestock Speculator Name Role Phone CEDRICK HUFFMAN Primary Care Provider CEE YANG Speed Winder [phone] NGHIA MOSELEY Chiropractic Doctor Assessment No assessment recorded. Plan of Treatment Reminders Order Date Submit Date Provider Last Modified By Organization Details Last Modified Time Details Appointments [place] T 15 2024 09:30A M Carlos Alberto Enamorado DPM Not available Not available Not available ANY 15 2024 09:15A Marcela Huffman MD Not available Not available Not available Lab urinal ysis macro (dipst ick) panel, urine 2024 025 [facility], [facility] [facility], [address], [place], [address], 06/02/2024 07:15:22 CMP, serum or plasma 2024 025 [facility], [address] [facility], [address], [place], [address], 06/02/2024 07:15:20 CBC w/ auto diff - Chroni c leukoc ytosis 2024 025 [facility], [address] [facility], [address], [place], [address], 06/02/2024 07:15:23 CBC w/ manual diff 2024 025 jessika [facility], [address], [place], [address], 06/23/2024 17:33:24 vitami n D, 25-hyd malachi, total, serum 2024 025 [facility], [address], [address], [place], [address], 06/02/2024 07:15:24 microa lbumin /creat inine, mass ratio, urine 2024 025 [facility], [address], [address], [place], [address], 06/02/2024 07:15:18 lipid panel, serum 2024 025 [facility], [address], [address], [place], [address], 06/02/2024 07:15:19 urinal ysis comple te, reflex cultur e 2023 024 [facility], [address], [place], [address], 07/24/2023 06:18:12 urinal ysis, dipsti ck 2022 023 [facility], [address], [address], [place], [address], 04/23/2023 11:10:48 CBC w/ auto diff 2022 023 [facility], [address], [address], [place], [address], 04/23/2023 11:10:49 CMP, serum or plasma 2022 023 [facility], [address] [place], [place] [address]mo [address], [address], [place], [address], 04/23/2023 11:10:45 vitami n D, 25-hyd malachi, total, serum 2022 023 [facility], [address] [place], [place] [address]mo [address], [address], [place], [address], 04/23/2023 11:10:18 HbA1c (hemog lobin A1c), blood 2022 023 [facility], [address] [place], [place] [address]mo [address], [address], [place], [address], 04/23/2023 11:10:16 lipid panel, serum 2022 023 [facility], [address] [place] [address], [address], [place], [address], 04/23/2023 11:10:44 microa lbumin /creat inine, mass ratio, urine 2022 023 [facility], [address] [place], [place] [address]mo [address], [address], [place], [address], 04/23/2023 11:10:14 pap, IG + reflex HPV 2022 023 [facility], [address], [place], [address], 05/21/2022 09:12:55 bacter ial vagino sis score, JOSE+pr obe, vagina l fluid (OBS) 2022 023 [facility], [address] [place] [address] [address], [address], [place], [address], 05/22/2022 03:07:55 HbA1c (hemog lobin A1c), blood 2021 [facility], [address] [place] [address], [address], [place], [address], 04/23/2022 12:50:10 CBC w/ auto diff 2021 022 [facility], [address] [place] [address], [address], [place], [address], 01/19/2022 06:11:38 urinal ysis comple te, reflex cultur e 2021 [facility], [address] [place] [address], [address], [place], [address], 01/19/2022 06:11:38 Referral diabet ic ophtha lmolog y referr al 2024 025 [facility], [facility] , [place], [address], 06/29/2024 04:26:00 podiat rist referr al 2024 025 [email or web address] [facility], [address], [place], [address], 07/08/2024 16:25:22 gastro entero logist referr al 2022 023 RAUL De Oliveira MD, [address], [address], [place], [address], 05/14/2023 09:53:22 diabet ic ophtha lmolog y referr al 2022 023 [facility], [address] , [place], [address], 06/26/2023 14:37:54 endocr inolog y, diabet es & metabo lism specia list referr al - Uncont rolled DM, Thyroi d nodule s 2022 023 RAUL [facility], [address], [address], [address], 02/04/2024 13:05:22 endocr inolog y, diabet es & metabo lism specia list referr al 2021 022 [email or web address], [address] [address] , [place], [address], 04/01/2022 14:32:00 gyneco logist referr al 2021 022 [email or web address] Cee MORENO, [address] [place] [address], [address], 05/02/2022 12:51:51 gastro entero logist referr al 2021 022 [email or web address] Manolo De Oliveira MD, [address], [facility] [address], [place], [address], 07/17/2022 08:17:09 Procedures None record ed. Surgeries None record ed. Imaging US, thyroi d - Thyroi d nodule 2024 025 [email or web address], [address], [place], [address], 06/30/2024 17:31:41 MAMMO, screen ing, bilate ral 2024 025 [email or web address] [facility], [address], [place], [address], 07/06/2024 15:39:00 Medication Orders Vitami n D3 50 mcg (2,000 unit) tablet 2023 025 [facility], [address] [place] [address], [id number], 06/01/2024 10:38:08 Ozempi c 0.25 mg or 0.5 mg (2 mg/1.5 mL) subcut aneous pen inject or 2023 024 [facility], [address] [place] [address], [id number], 06/01/2024 10:26:41 glimep iride 1 mg tablet 2023 025 [facility], [address] [place] [address], [id number], 06/01/2024 10:22:58 True Metrix Glucos e Test Strip 2022 023 [facility], [address] [place] [address], [id number], 04/22/2023 16:15:32 rosuva statin 10 mg tablet 2022 023 [facility], [address] [place] [address], [id number], 07/23/2023 18:16:37 flucon azole 150 mg tablet 2022 023 [facility], [address] [place] [address], [id number], 04/22/2023 09:48:26 nystat in 100,00 0 unit/g meggan topica l cream 2022 023 [facility], [address] [place] [address], [id number], 04/22/2023 09:48:42 glimep iride 2 mg tablet 2021 022 [facility] [id number], [address], 05/16/2022 10:05:57 losart an 25 mg tablet 2021 022 [facility] [id number], [address], 05/16/2022 10:06:33 Patient TargetsNo targets recorded. Patient Instructions Encounter Date Encounter Id Patient Instructions Last Modified By Organization Details Last Modified Time 01/17/2022 [id number] influenza (flu) vaccine: care instructions oajao Not available 01/17/2022 10:35:02 learning about type 2 diabetes oajao Not available 01/17/2022 10:22:51 type 2 diabetes: care instructions oajao Not available 01/17/2022 10:22:51 learning about high white blood cell counts oajao Not available 01/17/2022 10:42:17 body mass index: care instructions oajao Not available 01/17/2022 10:36:03 learning about healthy weight oajao Not available 01/17/2022 10:36:03 Increase Amaryl to 2 mg Start Losartan, side effects were discussed Labs in February, GI Ophthalmology Endocrinology Puller Out MMG as previously ordered Repeat UA today Follow up as scheduled on 05/09/2022 oajao Not available 01/17/2022 11:10:17 Detailed visit oajao Not available 0 01/17/2022 11:09:21 05/16/2022 [id number] well visit, wome n 50 to 65: care instructions [email or web address] Not available 05/16/2022 10:23:41 DOREEN Gibson, Discussed with CORTES Gandhi Not available 05/16/2022 13:48:40 04/22/2023 [id number] influenza (flu) vaccine: care instructions oajao Not available 04/22/2023 09:43:44 thyroid nodules: care instructions oajao Not available 04/22/2023 09:45:18 A healthy lifestyle: care instructions oajao Not available 04/22/2023 09:43:58 type 2 diabetes: care instructions oajao Not available 04/22/2023 09:39:28 body mass index: care instructions oajao Not available 04/22/2023 09:43:44 learning about healthy weight oajao Not available 04/22/2023 09:43:43 Labs Endocrinolo gy Ophthalmology GI Follow up in 3 months and PRN oajao Not available 04/22/2023 10:03:14 07/22/2023 [id number] A healthy lifestyle: care instructions oajao Not available 07/22/2023 10:00:28 body mass index: care instructions oajao Not available 07/22/2023 10:00:28 learning about healthy weight oajao Not available 07/22/2023 10:00:28 Endocrinology as referred Amaryl BID Labs today Ozempic Endocrinology as referred, Dr Black has alocal office. Follow up in 4 weeks and PRN Addendum Start Vitamin D oajao Not available 07/22/2023 11:01:08 06/01/2024 [id number] thyroid nodules: care instructions oajao Not available 06/01/2024 10:39:27 learning about breast cancer screening oajao Not available 06/01/2024 10:23:05 abnormal weight loss: care instructions oajao Not available 06/01/2024 10:24:55 Labs MMG Ophthalmology US Podiatry Follow up in 5 months and PRN oajao Not available 06/01/2024 10:39:44 Reason for Referral Brand Advisor Referral for Screening for malignant neoplasm of colon Referring Physician: Cedrick Huffman Internal Medicine, Encounter Date: 01/17/2022 Endocrinology, Diabetes & Me tabolism Specialist Referral for Type 2 diabetes mellitus Referring Physician: Cedrick Huffman Internal Medicine, Encounter Date: 01/17/2022 Forge Operator Helper Referral for Sc reening for malignant neoplasm of cervix Referring Physician: Cedrick Huffman Internal Medicine, Encounter Date: 01/17/2022 Diabetic Ophthalmology Refer ral for Type 2 diabetes mellitus without complication Referring Physician: Cedrick Huffman Internal Medicine, Encounter Date: 04/22/2023 Endocrinology, Diabetes & Me tabolism Specialist Referral for Type 2 diabetes mellitus without complication Uncontrolled DM, Thyroid nodules Uncontrolled DM, Thyroid nodules Referring Physician: Cedrick Huffman Internal Medicine, Encounter Date: 04/22/2023 Brand Advisor Referral for Screening for malignant neoplasm of colon Referring Physician: Cedrick Huffman Internal Medicine, Encounter Date: 04/22/2023 Diabetic Ophthalmology Refer ral for Type 2 diabetes mellitus without complication HBA1C 7.3% Referring Physician: Cedrick Huffman, Internal Medicine, Encounter Date: 06/01/2024 Dining Room Server Referral for Type 2 diabetes mellitus without complication DM, subungal hematoma Referring Physician: Cedrick Huffman, Internal Medicine, Encounter Date: 06/01/2024 Results Created Date Observation Date Name Description Value Unit Range Abnormal Flag Note LastModifiedBy Organization Detail LastModifiedTime 01/18/20 22 01/18/2022 UA WITH CULTU RE REFLE X specific gravity 1.024 1.005- 1.030 Not Available [facility] ([facility]) [address] [facility], [place], [address], 01/19/2022 06:11:37 01/18/2001/18/2022 UA WITH CULTU RE REFLE X pH 5.0 5.0-7. 5 Not Available [facility] ([facility]) [address] [facility], [place], [address], 01/19/2022 06:11:37 01/18/20 22 01/18/2022 UA WITH CULTU RE REFLE X urine-color YELLOW yellow Not Available [facility] ([facility]) [address] [facility], [place], [address], 01/19/2022 06:11:37 01/18/2001/18/2022 UA WITH CULTU RE REFLE X appearance CLEAR clear Not Available [facility] ([facility]) [address] [facility], [place], [address], 01/19/2022 06:11:37 01/18/2001/18/2022 UA WITH CULTU RE REFLE X WBC esterase 1+ negati ve abnormal Not Available [facility] ([facility]) [address] [facility], [place], [address], 01/19/2022 06:11:37 01/18/20 01/18/2022 UA WITH CULTU RE REFLE X protein TRACE negati ve/tra ce Not Available [facility] ([facility]) [address] [place], [address], 01/19/2022 06:11:37 01/18/20 22 01/18/2022 UA WITH CULTU RE REFLE X glucose NEGATI VE negati ve Not Available [facility] ([facility]) [address] [place], [address], 01/19/2022 06:11:37 01/18/20 22 01/18/2022 UA WITH CULTU RE REFLE X ketones TRACE negati ve abnormal Not Available [facility] ([facility]) [address] [place], [address], 01/19/2022 06:11:37 01/18/20 22 01/18/2022 UA WITH CULTU RE REFLE X occult blood NEGATI VE negati ve Not Available [facility] ([facility]) [address] [place], [address], 01/19/2022 06:11:37 01/18/20 22 01/18/2022 UA WITH CULTU RE REFLE X bilirubin NEGATI VE negati ve Not Available [facility] ([facility]) [address] [place], [address], 01/19/2022 06:11:37 01/18/20 22 01/18/2022 UA WITH CULTU RE REFLE X urobilinogen ,semi-qn 0.2 mg/dL 0.2-1. 0 Not Available [facility] ([facility]) [address] [place], [address], 01/19/2022 06:11:37 01/18/20 22 01/18/2022 UA WITH CULTU RE REFLE X nitrite, urine NEGATI VE negati ve Not Available [facility] ([facility]) [address] [place], [address], 01/19/2022 06:11:37 01/18/20 22 01/18/2022 UA WITH CULTU RE REFLE X microscopic examination SEE BELOW: Micro scopi c was indic ated and was perfo rmed. Not Available [facility] ([facility]) [address] [facility], [place], [address], 01/19/2022 06:11:37 01/18/20 22 01/18/2022 UA WITH CULTU RE REFLE X urinalysis reflex COMMEN T This speci men has refle xed to a Urine Cultu re. Not Available [facility] ([facility]) [address] [place], [address], 01/19/2022 06:11:37 01/18/20 22 01/19/2022 URINE CULTU RE, ROUTI NE urine culture, routine FINAL REPORT Not Available [facility] ([facility]) [address] [place], [address], 01/19/2022 06:11:39 01/18/20 22 01/19/2022 URINE CULTU RE, ROUTI NE result 1 COMMEN T Mixed uroge nital leonarda 25,00 0-50, 000 colon y formi ng units per mL Not Available [facility] ([facility]) [address] [place], [address], 01/19/2022 06:11:39 01/18/20 22 01/18/2022 CBC WITH DIFFE RENTI AL/PL ATELE T WBC 12.4 x10e3 /uL 3.4-10 .8 above high normal Not Available [facility] ([facility]) [address] [place], [address], 01/19/2022 06:11:38 01/18/20 22 01/18/2022 CBC WITH DIFFE RENTI AL/PL ATELE T RBC 4.29 x10e6 /uL 3.77-5 .28 Not Available [facility] ([facility]) [address] [facility], [place], [address], 01/19/2022 06:11:38 01/18/20 22 01/18/2022 CBC WITH DIFFE RENTI AL/PL ATELE T hemoglobin 11.8 g/dL 11.1-1 5.9 Not Available [facility] ([facility]) [address] [facility], [place], [address], 01/19/2022 06:11:38 01/18/20 22 01/18/2022 CBC WITH DIFFE RENTI AL/PL ATELE T hematocrit 36.4 % 34.0-4 6.6 Not Available [facility] ([facility]) [address] [facility], [place], [address], 01/19/2022 06:11:38 01/18/20 22 01/18/2022 CBC WITH DIFFE RENTI AL/PL ATELE T MCV 85 fL 79-97 Not Available [facility] ([facility]) [address] [facility], [place], [address], 01/19/2022 06:11:38 01/18/20 22 01/18/2022 CBC WITH DIFFE RENTI AL/PL ATELE T MCH 27.5 pg 26.6-3 3.0 Not Available [facility] ([facility]) [address] [facility], [place], [address], 01/19/2022 06:11:38 01/18/20 22 01/18/2022 CBC WITH DIFFE RENTI AL/PL ATELE T MCHC 32.4 g/dL 31.5-3 5.7 Not Available [facility] ([facility]) [address] [place], [address], 01/19/2022 06:11:38 01/18/20 22 01/18/2022 CBC WITH DIFFE RENTI AL/PL ATELE T RDW 13.7 % 11.7-1 5.4 Not Available [facility] ([facility]) [address], [place], [address], 01/19/2022 06:11:38 01/18/20 22 01/18/2022 CBC WITH DIFFE RENTI AL/PL ATELE T platelets 510 x10e3 /uL 150-45 0 above high normal Not Available [facility] ([facility]) [address] [facility], [place], [address], 01/19/2022 06:11:38 01/18/20 22 01/18/2022 CBC WITH DIFFE RENTI AL/PL ATELE T neutrophils 54 % notest ab. Not Available [facility] ([facility]) [address] [facility], [place], [address], 01/19/2022 06:11:38 01/18/20 22 01/18/2022 CBC WITH DIFFE RENTI AL/PL ATELE T lymphs 37 % notest ab. Not Available [facility] ([facility]) [address] [facility], [place], [address], 01/19/2022 06:11:38 01/18/20 22 01/18/2022 CBC WITH DIFFE RENTI AL/PL ATELE T monocytes 7 % notest ab. Not Available [facility] ([facility]) [address] [facility], [place], [address], 01/19/2022 06:11:38 01/18/20 22 01/18/2022 CBC WITH DIFFE RENTI AL/PL ATELE T eos 1 % notest ab. Not Available [facility] ([facility]) [address] [facility], [place], [address], 01/19/2022 06:11:38 01/18/20 22 01/18/2022 CBC WITH DIFFE RENTI AL/PL ATELE T basos 1 % notest ab. Not Available [facility] ([facility]) [address] [facility], [place], [address], 01/19/2022 06:11:38 01/18/20 22 01/18/2022 CBC WITH DIFFE RENTI AL/PL ATELE T neutrophils (absolute) 6.7 x10e3 /uL 1.4-7. 0 Not Available [facility] ([facility]) [address] [facility], [place], [address], 01/19/2022 06:11:38 01/18/20 22 01/18/2022 CBC WITH DIFFE RENTI AL/PL ATELE T lymphs (absolute) 4.6 x10e3 /uL 0.7-3. 1 above high normal Not Available [facility] ([facility]) [address] [place], [address], 01/19/2022 06:11:38 01/18/20 22 01/18/2022 CBC WITH DIFFE RENTI AL/PL ATELE T monocytes(ab solute) 0.9 x10e3 /uL 0.1-0. 9 Not Available [facility] ([facility]) [address] [facility], [place], [address], 01/19/2022 06:11:38 01/18/20 22 01/18/2022 CBC WITH DIFFE RENTI AL/PL ATELE T eos (absolute) 0.1 x10e3 /uL 0.0-0. 4 Not Available [facility] ([facility]) [address] [place], [address], 01/19/2022 06:11:38 01/18/20 22 01/18/2022 CBC WITH DIFFE RENTI AL/PL ATELE T baso (absolute) 0.1 x10e3 /uL 0.0-0. 2 Not Available [facility] ([facility]) [address] [place], [address], 01/19/2022 06:11:38 01/18/20 22 01/18/2022 CBC WITH DIFFE RENTI AL/PL ATELE T immature granulocytes 0 % notest ab. Not Available [facility] ([facility]) [address] [facility], [place], [address], 01/19/2022 06:11:38 01/18/20 22 01/18/2022 CBC WITH DIFFE RENTI AL/PL ATELE T immature grans (abs) 0.0 x10e3 /uL 0.0-0. 1 Not Available [facility] ([facility]) [address] [facility], [place], [address], 01/19/2022 06:11:38 01/18/20 22 01/18/2022 MICRO SCOPI C EXAMI NATIO N WBC 0-5 /hpf 0-5 Not Available [facility] ([facility]) [address] [facility], [place], [address], 01/19/2022 06:11:37 01/18/20 22 01/18/2022 MICRO SCOPI C EXAMI NATIO N RBC NONE SEEN /hpf 0-2 Not Available [facility] ([facility]) [address] [facility], [place], [address], 01/19/2022 06:11:37 01/18/20 22 01/18/2022 MICRO SCOPI C EXAMI NATIO N epithelial cells (non renal) >10 /hpf 0-10 abnormal Not Available [facility] ([facility]) [address] [facility], [place], [address], 01/19/2022 06:11:37 01/18/20 22 01/18/2022 MICRO SCOPI C EXAMI NATIO N casts NONE SEEN /lpf nonese en Not Available [facility] ([facility]) [address] [facility], [place], [address], 01/19/2022 06:11:37 01/18/20 22 01/18/2022 MICRO SCOPI C EXAMI NATIO N bacteria NONE SEEN nonese en/few Not Available [facility] ([facility]) [address] [facility], [place], [address], 01/19/2022 06:11:37 05/16/1905/16/2022 IGP,A PTIMA HPV,A GE GDLN age gdln acog testing 30-65 Not Available [facility] ([facility]) [address] [facility], [place], [address], 05/21/2022 09:12:55 05/16/1905/21/2022 NUSWA B VG+, HSV atopobium vaginae Low - 0 score Not Available [facility] ([facility]) [address] [facility], [place], [address], 05/22/2022 03:07:55 05/16/1905/21/2022 NUSWA B VG+, HSV bvab 2 Low - 0 score Not Available [facility] ([facility]) [address] [place], [address], 05/22/2022 03:07:55 05/16/1905/21/2022 NUSWA B VG+, HSV megasphaera 1 Low - 0 score Calcu late total score by river sheehan the 3 indiv idual bacte rial vagin osis (BV) marke r score s toget her. Total score is inter prete d as follo ws: Total score 0-1: Indic ates the absen ce of BV. Total score 2: Indet ermin ate for BV. Addit ional clini augustina data shoul d be evalu ated to estab tanner a diagn osis. Total score 3-6: Indic ates the prese nce of BV. This test was devel oped and its perfo rmanc e vicki cteri stics deter mined by [facility]. It has not been clear ed or appro blanca by the Food and Drug Admin istra tion. Not Available [facility] ([facility]) [address] [facility], [place], [address], 05/22/2022 03:07:55 05/16/1905/21/2022 NUSWA B VG+, HSV negro albicans, JOSE Negati ve negati ve Not Available [facility] ([facility]) [address] [facility], [place], [address], 05/22/2022 03:07:55 05/16/1905/21/2022 NUSWA B VG+, HSV negro glabrata, JOSE Negati ve negati ve Not Available [facility] ([facility]) [address] [facility], [place], [address], 05/22/2022 03:07:55 05/16/1905/21/2022 NUSWA B VG+, HSV trich vag by JOSE Negati ve negati ve Not Available [facility] ([facility]) [address] [facility], [place], [address], 05/22/2022 03:07:55 05/16/1905/21/2022 NUA B VG+, HSV chlamydia trachomatis, JOSE Negati ve negati ve Not Available [facility] ([facility]) [address] [facility], [place], [address], 05/22/2022 03:07:55 05/16/1905/21/2022 NUSWA B VG+, HSV neisseria gonorrhoeae, JOSE Negati ve negati ve Not Available [facility] ([facility]) [address] [facility], [place], [address], 05/22/2022 03:07:55 05/16/1905/21/2022 NUSWA B VG+, HSV hsv 1 JOSE Negati ve negati ve Not Available [facility] ([facility]) [address] [facility], [place], [address], 05/22/2022 03:07:55 05/16/1905/21/2022 NUSWA B VG+, HSV hsv 2 JOSE Negati ve negati ve Not Available [facility] ([facility]) [address] [facility], [place], [address], 05/22/2022 03:07:55 05/16/19 23 05/17/2022 IGP, APTIM A HPV, RFX 16/18 ,45 HPV aptima Negati ve negati ve This nucle ic acid ampli ficat ion test detec ts fourt een high- risk HPV types (16,1 8,31, 33,35 ,39,4 5,51, 52,56 ,58,5 9,66, 68) witho ut diffe renti ation . Not Available [facility] ([facility]) [address] [facility], [place], [address], 05/21/2022 09:12:56 05/16/1905/21/2022 IGP, APTIM A HPV, RFX 16/18 ,45 diagnosis: Carlito lynn NEGAT TOM FOR INTRA EPITH ELIAL LESIO N OR MALSARA KARLENE . CELLU HERMES JEAN BAPTISTE ES ASSOC IATED WITH INFLA MMATI ON ARE PRESE NT. Not Available [facility] ([facility]) [address] [facility], [place], [address], 05/21/2022 09:12:56 05/16/1905/21/2022 IGP, APTIM A HPV, RFX 16/18 ,45 specimen adequacy: Carlito t Satis facto ry for evalu ation . No endoc ervic al compo nent is ident ified . Not Available [facility] ([facility]) [address] [facility], [place], [address], 05/21/2022 09:12:56 05/16/1905/21/2022 IGP, APTIM A HPV, RFX 16/18 ,45 clinician provided ICD10: Carlito lynn Z01.4 19 N76.0 Not Available [facility] ([facility]) [address] [place], [address], 05/21/2022 09:12:56 05/16/1905/21/2022 IGP, APTIM A HPV, RFX 16/18 ,45 performed by: Carlito gutierrez, Cytot miki lynn (ASCP ) Not Available [facility] ([facility]) [address] [place], [address], 05/21/2022 09:12:56 05/16/19 23 05/21/2022 IGP, APTIM A HPV, RFX 16/18 ,45 . . Not Available [facility] [facility]) [address] [place], [address], 05/21/2022 09:12:56 05/16/19 23 05/21/2022 IGP, APTIM A HPV, RFX 16/18 ,45 note: Carlito lynn The Pap smear is a scree osmani test desig ge to aid in the detec tion of rajinder ligna nt and malig nant condi tions of the uteri ne cervi x. It is not a diagn ostic proce dure and shoul d not be used as the sole means of detec ting cervi augustina cance r. Both false -posi tive and false -nega tive repor ts do occur . Not Available [facility] ([facility]) [address] [place], [address], 05/21/2022 09:12:56 05/16/1905/21/2022 IGP, APTIM A HPV, RFX 16/18 ,45 test methodology: Carlito lynn This liqui d based ThinP rep(R ) pap test was scree ge with the use of an image guide prosper systhoney turner. Not Available [facility] ([facility]) [address] [place], [address], 05/21/2022 09:12:56 05/16/1905/21/2022 IGP, APTIM A HPV, RFX 16/18 ,45 HPV genotype reflex Carlito lynn Crite brie not met, HPV Genot ype not perfo rmed. Not Available [facility] ([facility]) [address] [place], [address], 05/21/2022 09:12:56 04/22/20 23 04/23/2023 ALBUM IN/CR EAT RATIO , RANDO Marcela UR creatinine, urine 182.9 mg/dL notest ab. Not Available [address], [address], 04/23/2023 11:10:13 04/22/20 23 04/23/2023 ALBUM IN/CR EAT RATIO , EMAO M UR albumin, urine 16.3 ug/mL notest ab. Not Available [address], [address], 04/23/2023 11:10:13 04/22/2004/23/2023 ALBUM IN/CR EAT RATIO , RANDO M UR alb/creat ratio 9 mg/g_ creat 0-29 Janneth l: 0 - 29 Moder ately incre ased: 30 - 300 Sever kenya incre ased: >300 Not Available [address], [address], 04/23/2023 11:10:13 04/22/2004/23/2023 HEMOG LOBIN A1C hemoglobin A1C 11.2 % 4.8-5. 6 above high normal Predi abete s: 5.7 - 6.4 Diabe ti: >6.4 Glyce joey contr ol for adult s with diabe ti: <7.0 Not Available [address], [address], 04/23/2023 11:10:16 04/22/2004/23/2023 VITAM IN D, 25-HY DROXY vitamin D, 25-hydroxy 29.9 NG/mL 30.0-1 00.0 below low normal Vitam in D defic iency has been defin ed by the Insti tute of Medic ine and an Endoc rine Socie ty pract ice guide line as a level of serum 25-OH vitam in D less than 20 ng/mL (1,2) . The Endoc rine Socie ty went on to furth er defin e vitam in D insuf ficie ncy as a level betwe en 21 and 29 ng/mL (2). 1. IOM (Inst itute of Medic ine). 2010. Dieta ry refer ence intak es for calci um and D. Maddi huffman [place]: [facility] . 2. Timbo mata MF, Shira harrell [place], Jo off-F errar i LANDIN, et al. Evalu ation , treat ment, and preve ntion of vitam in D defic iency : an Endoc rine Socie ty clini augustina pract ice guide line. JCEM. 2010; 96(7) :1911 -30. Not Available [facility] & [address], [address], 04/23/2023 11:10:18 04/22/20 23 04/23/2023 LIPID PANEL cholesterol, total 97 mg/dL 100-19 9 below low normal Not Available [facility] & [address], [address], 04/23/2023 11:10:44 04/22/20 23 04/23/2023 LIPID PANEL triglyceride s 116 mg/dL 0-149 Not Available [facility] & [address], [address], 04/23/2023 11:10:44 04/22/20 23 04/23/2023 LIPID PANEL HDL cholesterol 52 mg/dL >39 Not Available [facility] & [facility] [id number] [place] [address], [address], 04/23/2023 11:10:44 04/22/20 23 04/23/2023 LIPID PANEL VLDL cholesterol augustina 21 mg/dL 5-40 Not Available [facility] & [facility] [id number] [place] [address], [address], 04/23/2023 11:10:44 04/22/20 23 04/23/2023 LIPID PANEL LDL chol calc ([facility]) 24 mg/dL 0-99 Not Available [address], [address], 04/23/2023 11:10:44 04/22/20 23 04/23/2023 COMP. METAB OLIC PANEL (14) glucose 291 mg/dL 70-99 above high normal Not Available [address], [address], 04/23/2023 11:10:45 04/22/20 23 04/23/2023 COMP. METAB OLIC PANEL (14) BUN 15 mg/dL 8- Not Available [address], [address], 04/23/2023 11:10:45 04/22/20 23 04/23/2023 COMP. METAB OLIC PANEL (14) creatinine 0.84 mg/dL 0.57-1 .00 Not Available [address], [address], 04/23/2023 11:10:45 04/22/20 23 04/23/2023 COMP. METAB OLIC PANEL (14) eGFR 80 mL/mi n/1.7 3 >59 Not Available [address], [address], 04/23/2023 11:10:45 04/22/20 23 04/23/2023 COMP. METAB OLIC PANEL (14) BUN/creatini ne ratio 18 12-28 Not Available [address], [address], 04/23/2023 11:10:45 04/22/20 23 04/23/2023 COMP. METAB OLIC PANEL (14) sodium 137 mmol/ L 134-14 4 Not Available [address], [address], 04/23/2023 11:10:45 04/22/20 23 04/23/2023 COMP. METAB OLIC PANEL (14) potassium 4.7 mmol/ L 3.5-5. 2 Not Available [address], [address], 04/23/2023 11:10:45 04/22/20 23 04/23/2023 COMP. METAB OLIC PANEL (14) chloride 99 mmol/ L 96-106 Not Available [address], [address], 04/23/2023 11:10:45 04/22/20 23 04/23/2023 COMP. METAB OLIC PANEL (14) carbon dioxide, total 23 mmol/ L 20-29 Not Available [address], [address], 04/23/2023 11:10:45 04/22/20 23 04/23/2023 COMP. METAB OLIC PANEL (14) calcium 9.2 mg/dL 8.7-10 .3 Not Available [address], [address], 04/23/2023 11:10:45 04/22/20 23 04/23/2023 COMP. METAB OLIC PANEL (14) protein, total 7.2 g/dL 6.0-8. 5 Not Available [address], [address], 04/23/2023 11:10:45 04/22/20 23 04/23/2023 COMP. METAB OLIC PANEL (14) albumin 4.5 g/dL 3.8-4. 9 Not Available [address], [address], 04/23/2023 11:10:45 04/22/20 23 04/23/2023 COMP. METAB OLIC PANEL (14) globulin, total 2.7 g/dL 1.5-4. 5 Not Available [address], [address], 04/23/2023 11:10:45 04/22/20 23 04/23/2023 COMP. METAB OLIC PANEL (14) A/G ratio 1.7 1.2-2. 2 Not Available [address], [address], 04/23/2023 11:10:45 04/22/20 23 04/23/2023 COMP. METAB OLIC PANEL (14) bilirubin, total 0.5 mg/dL 0.0-1. 2 Not Available [address], [facility], 04/23/2023 11:10:45 04/22/20 23 04/23/2023 COMP. METAB OLIC PANEL (14) alkaline phosphatase 109 IU/L 44-121 Not Available [address], [address], 04/23/2023 11:10:45 04/22/20 23 04/23/2023 COMP. METAB OLIC PANEL (14) AST (SGOT) 11 IU/L 0-40 Not Available [address], [address], 04/23/2023 11:10:45 04/22/20 23 04/23/2023 COMP. METAB OLIC PANEL (14) ALT (SGPT) 9 IU/L 0-32 Not Available [address], [address], 04/23/2023 11:10:45 04/22/20 23 04/23/2023 URINA LYSIS , ROUTI NE specific gravity 1.028 1.005- 1.030 Not Available [address], [address], 04/23/2023 11:10:48 04/22/2004/23/2023 URINA LYSIS , ROUTI NE pH 5.5 5.0-7. 5 Not Available [address], [address], 04/23/2023 11:10:48 04/22/2004/23/2023 URINA LYSIS , ROUTI NE urine-color YELLOW yellow Not Available [address], [address], 04/23/2023 11:10:48 04/22/2004/23/2023 URINA LYSIS , ROUTI NE appearance TURBID clear abnormal Not Available [address], [address], 04/23/2023 11:10:48 04/22/2004/23/2023 URINA LYSIS , ROUTI NE WBC esterase 1+ negati ve abnormal Not Available [address], [address], 04/23/2023 11:10:48 04/22/2004/23/2023 URINA LYSIS , ROUTI NE protein NEGATI VE negati ve/tra ce Not Available [address], [address], 04/23/2023 11:10:48 04/22/2004/23/2023 URINA LYSIS , ROUTI NE glucose 3+ negati ve abnormal Not Available [address], [address], 04/23/2023 11:10:48 04/22/20 23 04/23/2023 URINA LYSIS , ROUTI NE ketones TRACE negati ve abnormal Not Available [address], [address], 04/23/2023 11:10:48 04/22/2004/23/2023 URINA LYSIS , ROUTI NE occult blood NEGATI VE negati ve Not Available [address], [address], 04/23/2023 11:10:48 04/22/2004/23/2023 URINA LYSIS , ROUTI NE bilirubin NEGATI VE negati ve Not Available [address], [address], 04/23/2023 11:10:48 04/22/2004/23/2023 URINA LYSIS , ROUTI NE urobilinogen ,semi-qn 0.2 mg/dL 0.2-1. 0 Not Available [address], [address], 04/23/2023 11:10:48 04/22/2004/23/2023 URINA LYSIS , ROUTI NE nitrite, urine NEGATI VE negati ve Not Available [address], [address], 04/23/2023 11:10:48 04/22/2004/23/2023 URINA LYSIS , ROUTI NE microscopic examination SEE BELOW: Micro scopi c was indic ated and was perfo rmed. Not Available [address], [address], 04/23/2023 11:10:48 04/22/2004/23/2023 CBC WITH DIFFE RENTI AL/PL ATELE T WBC 12.4 x10e3 /uL 3.4-10 .8 above high normal Not Available [address], [address], 04/23/2023 11:10:49 04/22/2004/23/2023 CBC WITH DIFFE RENTI AL/PL ATELE T RBC 4.28 x10e6 /uL 3.77-5 .28 Not Available [facility] & [address], [address], 04/23/2023 11:10:49 04/22/2004/23/2023 CBC WITH DIFFE RENTI AL/PL ATELE T hemoglobin 11.5 g/dL 11.1-1 5.9 Not Available [address], [address], 04/23/2023 11:10:49 04/22/2004/23/2023 CBC WITH DIFFE RENTI AL/PL ATELE T hematocrit 36.0 % 34.0-4 6.6 Not Available [address], [address], 04/23/2023 11:10:49 04/22/2004/23/2023 CBC WITH DIFFE RENTI AL/PL ATELE T MCV 84 fL 79-97 Not Available [facility] & [address], [address], 04/23/2023 11:10:49 04/22/2004/23/2023 CBC WITH DIFFE RENTI AL/PL ATELE T MCH 26.9 pg 26.6-3 3.0 Not Available [address], [address], 04/23/2023 11:10:49 04/22/2004/23/2023 CBC WITH DIFFE RENTI AL/PL ATELE T MCHC 31.9 g/dL 31.5-3 5.7 Not Available [address], [address], 04/23/2023 11:10:49 04/22/2004/23/2023 CBC WITH DIFFE RENTI AL/PL ATELE T RDW 13.3 % 11.7-1 5.4 Not Available [facility] & [address], [address], 04/23/2023 11:10:49 04/22/20 23 04/23/2023 CBC WITH DIFFE RENTI AL/PL ATELE T platelets 497 x10e3 /uL 150-45 0 above high normal Not Available [facility] & [address], [address], 04/23/2023 11:10:49 04/22/2004/23/2023 CBC WITH DIFFE RENTI AL/PL ATELE T neutrophils 59 % notest ab. Not Available [address], [address], 04/23/2023 11:10:49 04/22/2004/23/2023 CBC WITH DIFFE RENTI AL/PL ATELE T lymphs 32 % notest ab. Not Available [address], [address], 04/23/2023 11:10:49 04/22/2004/23/2023 CBC WITH DIFFE RENTI AL/PL ATELE T monocytes 7 % notest ab. Not Available [facility] [place] & [address], [address], 04/23/2023 11:10:49 04/22/20 23 04/23/2023 CBC WITH DIFFE RENTI AL/PL ATELE T eos 1 % notest ab. Not Available [facility] [address], [address], 04/23/2023 11:10:49 04/22/20 23 04/23/2023 CBC WITH DIFFE RENTI AL/PL ATELE T basos 1 % notest ab. Not Available [address], [address], 04/23/2023 11:10:49 04/22/2004/23/2023 CBC WITH DIFFE RENTI AL/PL ATELE T neutrophils (absolute) 7.4 x10e3 /uL 1.4-7. 0 above high normal Not Available [address], [address], 04/23/2023 11:10:49 04/22/20 23 04/23/2023 CBC WITH DIFFE RENTI AL/PL ATELE T lymphs (absolute) 4.0 x10e3 /uL 0.7-3. 1 above high normal Not Available [address], [address], 04/23/2023 11:10:49 04/22/20 23 04/23/2023 CBC WITH DIFFE RENTI AL/PL ATELE T monocytes(ab solute) 0.8 x10e3 /uL 0.1-0. 9 Not Available [address], [address], 04/23/2023 11:10:49 04/22/20 23 04/23/2023 CBC WITH DIFFE RENTI AL/PL ATELE T eos (absolute) 0.2 x10e3 /uL 0.0-0. 4 Not Available [address], [address], 04/23/2023 11:10:49 04/22/20 23 04/23/2023 CBC WITH DIFFE RENTI AL/PL ATELE T baso (absolute) 0.1 x10e3 /uL 0.0-0. 2 Not Available [address], [address], 04/23/2023 11:10:49 04/22/20 23 04/23/2023 CBC WITH DIFFE RENTI AL/PL ATELE T immature granulocytes 0 % notest ab. Not Available [address], [address], 04/23/2023 11:10:49 04/22/20 23 04/23/2023 CBC WITH DIFFE RENTI AL/PL ATELE T immature grans (abs) 0.0 x10e3 /uL 0.0-0. 1 Not Available [address], [address], 04/23/2023 11:10:49 04/22/2004/23/2023 DIABE TI PATIE NT EDUCA TION pdf NOT APPLIC ABLE Not Available [address], [address], 04/23/2023 11:10:15 04/22/20 23 04/23/2023 DIABE TI PATIE NT EDUCA TION pdf . Not Available [address], [address], 04/23/2023 11:10:46 04/22/20 23 04/23/2023 MICRO SCOPI C EXAMI NATIO N WBC 11-30 /hpf 0-5 abnormal Not Available [address], [address], 04/23/2023 11:10:46 04/22/20 23 04/23/2023 MICRO SCOPI C EXAMI NATIO N RBC 0-2 /hpf 0-2 Not Available [address], [address], 04/23/2023 11:10:46 04/22/20 23 04/23/2023 MICRO SCOPI C EXAMI NATIO N epithelial cells (non renal) 0-10 /hpf 0-10 Not Available [address], [address], 04/23/2023 11:10:46 04/22/20 23 04/23/2023 MICRO SCOPI C EXAMI NATIO N casts NONE SEEN /lpf nonese en Not Available [address], [address], 04/23/2023 11:10:46 04/22/20 23 04/23/2023 MICRO SCOPI C EXAMI NATIO N bacteria FEW nonese en/few Not Available [address], [address], 04/23/2023 11:10:46 07/22/19 24 07/23/2023 MICRO SCOPI C EXAMI NATIO N WBC >30 /hpf 0-5 abnormal Not Available [facility] ([facility]) [address] [place], [address], 07/24/2023 06:18:12 07/22/19 24 07/23/2023 MICRO SCOPI C EXAMI NATIO N RBC NONE SEEN /hpf 0-2 Not Available [facility] ([facility]) [address] [place], [address], 07/24/2023 06:18:12 07/22/19 24 07/23/2023 MICRO SCOPI C EXAMI NATIO N epithelial cells (non renal) 0-10 /hpf 0-10 Not Available [facility] ([facility]) [address] [facility], [place], [address], 07/24/2023 06:18:12 07/22/19 24 07/23/2023 MICRO SCOPI C EXAMI NATIO N casts NONE SEEN /lpf nonese en Not Available [facility] ([facility]) [address] [place], [address], 07/24/2023 06:18:12 07/22/19 24 07/23/2023 MICRO SCOPI C EXAMI NATIO N bacteria FEW nonese en/few Not Available [facility] ([facility]) [address] [facility], [place], [address], 07/24/2023 06:18:12 07/22/19 24 07/23/2023 UA WITH CULTU RE REFLE X specific gravity 1.021 1.005- 1.030 Not Available [facility] ([facility]) [address] [facility], [place], [address], 07/24/2023 06:18:12 07/22/19 24 07/23/2023 UA WITH CULTU RE REFLE X pH 5.5 5.0-7. 5 Not Available [facility] ([facility]) [address] [facility], [place], [address], 07/24/2023 06:18:12 07/22/19 24 07/23/2023 UA WITH CULTU RE REFLE X urine-color YELLOW yellow Not Available [facility] ([facility]) [address] [facility], [place], [address], 07/24/2023 06:18:12 07/22/19 24 07/23/2023 UA WITH CULTU RE REFLE X appearance CLEAR clear Not Available [facility] ([facility]) [address] [facility], [place], [address], 07/24/2023 06:18:12 07/22/19 24 07/23/2023 UA WITH CULTU RE REFLE X WBC esterase 2+ negati ve abnormal Not Available [facility] ([facility]) [address] [facility], [place], [address], 07/24/2023 06:18:12 07/22/19 24 07/23/2023 UA WITH CULTU RE REFLE X protein TRACE negati ve/tra ce Not Available [facility] ([facility]) [address] [facility], [place], [address], 07/24/2023 06:18:12 07/22/19 24 07/23/2023 UA WITH CULTU RE REFLE X glucose NEGATI VE negati ve Not Available [facility] ([facility]) [address] [place], [address], 07/24/2023 06:18:12 07/22/19 24 07/23/2023 UA WITH CULTU RE REFLE X ketones NEGATI VE negati ve Not Available [facility] ([facility]) [address] [place], [address], 07/24/2023 06:18:12 07/22/19 24 07/23/2023 UA WITH CULTU RE REFLE X occult blood NEGATI VE negati ve Not Available [facility] ([facility]) [address] [place], [address], 07/24/2023 06:18:12 07/22/19 24 07/23/2023 UA WITH CULTU RE REFLE X bilirubin NEGATI VE negati ve Not Available [facility] ([facility]) [address] [place], [address], 07/24/2023 06:18:12 07/22/19 24 07/23/2023 UA WITH CULTU RE REFLE X urobilinogen ,semi-qn 0.2 mg/dL 0.2-1. 0 Not Available [facility] ([facility]) [address] [place], [address], 07/24/2023 06:18:12 07/22/19 24 07/23/2023 UA WITH CULTU RE REFLE X nitrite, urine NEGATI VE negati ve Not Available [facility] ([facility]) [address] [place], [address], 07/24/2023 06:18:12 07/22/19 24 07/23/2023 UA WITH CULTU RE REFLE X microscopic examination SEE BELOW: Micro scopi c was indic ated and was perfo rmed. Not Available [facility] ([facility]) [address] [facility], [place], [address], 07/24/2023 06:18:12 07/22/19 24 07/23/2023 UA WITH CULTU RE REFLE X urinalysis reflex COMMEN T This speci men has refle xed to a Urine Cultu re. Not Available [facility] ([facility]) [address] [facility], [place], [address], 07/24/2023 06:18:12 07/22/19 24 07/24/2023 URINE CULTU RE, ROUTI NE urine culture, routine FINAL REPORT Not Available [facility] ([facility]) [address] [facility], [place], [address], 07/24/2023 06:18:13 07/22/19 24 07/24/2023 URINE CULTU RE, ROUTI NE result 1 COMMEN T Cultu re shows less than 10,00 0 colon y formi ng units of bacte brie per darrell liter of urine . This colon y count is not gener ally consi dered to be clini luis enrique signi fican t. Not Available [facility] ([facility]) [address] [facility], [place], [address], 07/24/2023 06:18:13 06/01/19 25 06/02/2024 ALBUM IN/CR EAT RATIO , RANDO M UR creatinine, urine 255.9 mg/dL notest ab. Not Available [facility] ([facility]) [address] [place], [address], 06/02/2024 07:15:18 06/01/19 25 06/02/2024 ALBUM IN/CR EAT RATIO , RANDO M UR albumin, urine 15.3 ug/mL notest ab. Not Available [facility] ([facility]) [address] [place], [address], 06/02/2024 07:15:18 06/01/19 25 06/02/2024 ALBUM IN/CR EAT RATIO , ESTEBAN Turner UR alb/creat ratio 6 mg/g_ creat 0-29 Janneth l: 0 - 29 Moder ately incre ased: 30 - 300 Sever kenya incre ased: >300 Not Available [facility] ([facility]) [address] [place], [address], 06/02/2024 07:15:18 06/01/19 25 06/02/2024 LIPID PANEL cholesterol, total 96 mg/dL 100-19 9 below low normal Not Available [facility] ([facility]) [address] [place], [address], 06/02/2024 07:15:19 06/01/19 25 06/02/2024 LIPID PANEL triglyceride s 73 mg/dL 0-149 Not Available [facility] ([facility]) [address] [place], [address], 06/02/2024 07:15:19 06/01/19 25 06/02/2024 LIPID PANEL HDL cholesterol 55 mg/dL >39 Not Available [facility] ([facility]) [address] [place], [address], 06/02/2024 07:15:19 06/01/19 25 06/02/2024 LIPID PANEL VLDL cholesterol augustina 15 mg/dL 5-40 Not Available [facility] ([facility]) [address] [place], [address], 06/02/2024 07:15:19 06/01/19 25 06/02/2024 LIPID PANEL LDL chol calc ([facility]) 26 mg/dL 0-99 Not Available [facility] ([facility]) [address] [place], [address], 06/02/2024 07:15:19 06/01/19 25 06/02/2024 COMP. METAB OLIC PANEL (14) glucose 117 mg/dL 70-99 above high normal Not Available [facility] ([facility]) [address] [place], [address], 06/02/2024 07:15:20 06/01/19 25 06/02/2024 COMP. METAB OLIC PANEL (14) BUN 16 mg/dL 8-27 Not Available [facility] ([facility]) [address] [place] [place], [address], 06/02/2024 07:15:20 06/01/19 25 06/02/2024 COMP. METAB OLIC PANEL (14) creatinine 0.84 mg/dL 0.57-1 .00 Not Available [facility] ([facility]) [address] [facility] [place], [address], 06/02/2024 07:15:20 06/01/19 25 06/02/2024 COMP. METAB OLIC PANEL (14) eGFR 79 mL/mi n/1.7 3 >59 Not Available [facility] ([facility]) [address] [place], [address], 06/02/2024 07:15:20 06/01/19 25 06/02/2024 COMP. METAB OLIC PANEL (14) BUN/creatini ne ratio 19 12-28 Not Available [facility] ([facility]) [address] [place], [address], 06/02/2024 07:15:20 06/01/19 25 06/02/2024 COMP. METAB OLIC PANEL (14) sodium 138 mmol/ L 134-14 4 Not Available [facility] ([facility]) [address] [place], [address], 06/02/2024 07:15:20 06/01/19 25 06/02/2024 COMP. METAB OLIC PANEL (14) potassium 5.2 mmol/ L 3.5-5. 2 Not Available [facility] ([facility]) [address] [place], [address], 06/02/2024 07:15:20 06/01/19 25 06/02/2024 COMP. METAB OLIC PANEL (14) chloride 102 mmol/ L 96-106 Not Available [facility] ([facility]) [address] [place], [address], 06/02/2024 07:15:20 06/01/19 25 06/02/2024 COMP. METAB OLIC PANEL (14) carbon dioxide, total 24 mmol/ L 20-29 Not Available [facility] ([facility]) [address] [facility], [place], [address], 06/02/2024 07:15:20 06/01/19 25 06/02/2024 COMP. METAB OLIC PANEL (14) calcium 9.9 mg/dL 8.7-10 .3 Not Available [facility] ([facility]) [address] [facility], [place], [address], 06/02/2024 07:15:20 06/01/19 25 06/02/2024 COMP. METAB OLIC PANEL (14) protein, total 7.4 g/dL 6.0-8. 5 Not Available [facility] ([facility]) [address] [place], [address], 06/02/2024 07:15:20 06/01/19 25 06/02/2024 COMP. METAB OLIC PANEL (14) albumin 4.5 g/dL 3.9-4. 9 Not Available [facility] ([facility]) [address] [place], [address], 06/02/2024 07:15:20 06/01/19 25 06/02/2024 COMP. METAB OLIC PANEL (14) globulin, total 2.9 g/dL 1.5-4. 5 Not Available [facility] ([facility]) [address] [facility], [place], [address], 06/02/2024 07:15:20 06/01/19 25 06/02/2024 COMP. METAB OLIC PANEL (14) bilirubin, total 0.6 mg/dL 0.0-1. 2 Not Available [facility] ([facility]) [address] [facility], [place], [address], 06/02/2024 07:15:20 06/01/19 25 06/02/2024 COMP. METAB OLIC PANEL (14) alkaline phosphatase 75 IU/L 44-121 Not Available [facility] ([facility]) [address] [facility], [place], [address], 06/02/2024 07:15:20 06/01/19 25 06/02/2024 COMP. METAB OLIC PANEL (14) AST (SGOT) 14 IU/L 0-40 Not Available [facility] ([facility]) [address] [facility], [place], [address], 06/02/2024 07:15:20 06/01/19 25 06/02/2024 COMP. METAB OLIC PANEL (14) ALT (SGPT) 9 IU/L 0-32 Not Available [facility] ([facility]) [address] [facility], [place], [address], 06/02/2024 07:15:20 06/01/19 25 06/02/2024 MICRO SCOPI C EXAMI NATIO N WBC 6-10 /hpf 0-5 abnormal Not Available [facility] ([facility]) [address] [facility], [place], [address], 06/02/2024 07:15:21 06/01/19 25 06/02/2024 MICRO SCOPI C EXAMI NATIO N RBC None seen /hpf 0-2 Not Available [facility] ([facility]) [address] [facility], [place], [address], 06/02/2024 07:15:21 06/01/19 25 06/02/2024 MICRO SCOPI C EXAMI NATIO N epithelial cells (non renal) >10 /hpf 0-10 abnormal Not Available [facility] ([facility]) [address] [facility], [place], [address], 06/02/2024 07:15:21 06/01/19 25 06/02/2024 MICRO SCOPI C EXAMI NATIO N casts None seen /lpf nonese en Not Available [facility] ([facility]) [address] [facility], [place], [address], 06/02/2024 07:15:21 06/01/19 25 06/02/2024 MICRO SCOPI C EXAMI NATIO N bacteria Few nonese en/few Not Available [facility] ([facility]) [address] [facility], [place], [address], 06/02/2024 07:15:21 06/01/19 25 06/02/2024 URINA LYSIS , ROUTI NE specific gravity 1.023 1.005- 1.030 Not Available [facility] ([facility]) [address] [facility], [place], [address], 06/02/2024 07:15:22 06/01/19 25 06/02/2024 URINA LYSIS , ROUTI NE pH 5.0 5.0-7. 5 Not Available [facility] ([facility]) [address] [facility], [place], [address], 06/02/2024 07:15:22 06/01/19 25 06/02/2024 URINA LYSIS , ROUTI NE urine-color YELLOW yellow Not Available [facility] ([facility]) [address] [facility], [place], [address], 06/02/2024 07:15:22 06/01/19 25 06/02/2024 URINA LYSIS , ROUTI NE appearance TURBID clear abnormal Not Available [facility] ([facility]) [address] [facility], [place], [address], 06/02/2024 07:15:22 06/01/19 25 06/02/2024 URINA LYSIS , ROUTI NE WBC esterase TRACE negati ve abnormal Not Available [facility] ([facility]) [address] [place], [address], 06/02/2024 07:15:22 06/01/19 25 06/02/2024 URINA LYSIS , ROUTI NE protein NEGATI VE negati ve/tra ce Not Available [facility] ([facility] [facility]) [address] [place], [address], 06/02/2024 07:15:22 06/01/19 25 06/02/2024 URINA LYSIS , ROUTI NE glucose NEGATI VE negati ve Not Available [facility] ([facility]) [address] [place], [address], 06/02/2024 07:15:22 06/01/19 25 06/02/2024 URINA LYSIS , ROUTI NE ketones TRACE negati ve abnormal Not Available [facility] ([facility]) [address] [place], [address], 06/02/2024 07:15:22 06/01/19 25 06/02/2024 URINA LYSIS , ROUTI NE occult blood NEGATI VE negati ve Not Available [facility] ([facility]) [address] [place], [address], 06/02/2024 07:15:22 06/01/19 25 06/02/2024 URINA LYSIS , ROUTI NE bilirubin NEGATI VE negati ve Not Available [facility] ([facility]) [address] [place], [address], 06/02/2024 07:15:22 06/01/19 25 06/02/2024 URINA LYSIS , ROUTI NE urobilinogen ,semi-qn 0.2 mg/dL 0.2-1. 0 Not Available [facility] ([facility]) [address] [place], [address], 06/02/2024 07:15:22 06/01/19 25 06/02/2024 URINA LYSIS , ROUTI NE nitrite, urine NEGATI VE negati ve Not Available [facility] ([facility]) [address] [place], [address], 06/02/2024 07:15:22 06/01/19 25 06/02/2024 URINA LYSIS , ROUTI NE microscopic examination SEE BELOW: Micro scopi c was indic ated and was perfo rmed. Not Available [facility] ([facility]) [address] [facility], [place], [address], 06/02/2024 07:15:22 06/01/19 25 06/01/2024 CBC WITH DIFFE RENTI AL/PL ATELE T WBC 9.1 x10e3 /uL 3.4-10 .8 Not Available [facility] ([facility]) [address] [place], [address], 06/02/2024 07:15:23 06/01/19 25 06/01/2024 CBC WITH DIFFE RENTI AL/PL ATELE T RBC 4.14 x10e6 /uL 3.77-5 .28 Not Available [facility] ([facility]) [address] [facility], [place], [address], 06/02/2024 07:15:23 06/01/19 25 06/01/2024 CBC WITH DIFFE RENTI AL/PL ATELE T hemoglobin 11.6 g/dL 11.1-1 5.9 Not Available [facility] ([facility]) [address] [place], [address], 06/02/2024 07:15:23 06/01/19 25 06/01/2024 CBC WITH DIFFE RENTI AL/PL ATELE T hematocrit 35.8 % 34.0-4 6.6 Not Available [facility] ([facility]) [address] [place], [address], 06/02/2024 07:15:23 06/01/19 25 06/01/2024 CBC WITH DIFFE RENTI AL/PL ATELE T MCV 87 fL 79-97 Not Available [facility] ([facility]) [address] [facility], [place], [address], 06/02/2024 07:15:23 06/01/19 25 06/01/2024 CBC WITH DIFFE RENTI AL/PL ATELE T MCH 28.0 pg 26.6-3 3.0 Not Available [facility] ([facility]) [address] [facility], [place], [address], 06/02/2024 07:15:23 06/01/19 25 06/01/2024 CBC WITH DIFFE RENTI AL/PL ATELE T MCHC 32.4 g/dL 31.5-3 5.7 Not Available [facility] ([facility]) [address] [place], [address], 06/02/2024 07:15:23 06/01/19 25 06/01/2024 CBC WITH DIFFE RENTI AL/PL ATELE T RDW 14.0 % 11.7-1 5.4 Not Available [facility] ([facility]) [address] [place], [address], 06/02/2024 07:15:23 06/01/19 25 06/01/2024 CBC WITH DIFFE RENTI AL/PL ATELE T platelets 483 x10e3 /uL 150-45 0 above high normal Not Available [facility] ([facility]) [address] [place], [address], 06/02/2024 07:15:23 06/01/19 25 06/01/2024 CBC WITH DIFFE RENTI AL/PL ATELE T neutrophils 49 % notest ab. Not Available [facility] ([facility]) [address] [place], [address], 06/02/2024 07:15:23 06/01/19 25 06/01/2024 CBC WITH DIFFE RENTI AL/PL ATELE T lymphs 43 % notest ab. Not Available [facility] ([facility]) [address] [facility], [place], [address], 06/02/2024 07:15:23 06/01/19 25 06/01/2024 CBC WITH DIFFE RENTI AL/PL ATELE T monocytes 7 % notest ab. Not Available [facility] ([facility]) [address] [facility], [place], [address], 06/02/2024 07:15:23 06/01/19 25 06/01/2024 CBC WITH DIFFE RENTI AL/PL ATELE T eos 1 % notest ab. Not Available [facility] ([facility]) [address] [facility], [place], [address], 06/02/2024 07:15:23 06/01/19 25 06/01/2024 CBC WITH DIFFE RENTI AL/PL ATELE T basos 0 % notest ab. Not Available [facility] ([facility]) [address] [place], [address], 06/02/2024 07:15:23 06/01/19 25 06/01/2024 CBC WITH DIFFE RENTI AL/PL ATELE T neutrophils (absolute) 4.4 x10e3 /uL 1.4-7. 0 Not Available [facility] ([facility]) [address] [place], [address], 06/02/2024 07:15:23 06/01/19 25 06/01/2024 CBC WITH DIFFE RENTI AL/PL ATELE T lymphs (absolute) 3.9 x10e3 /uL 0.7-3. 1 above high normal Not Available [facility] ([facility]) [address] [place], [address], 06/02/2024 07:15:23 06/01/19 25 06/01/2024 CBC WITH DIFFE RENTI AL/PL ATELE T monocytes(ab solute) 0.6 x10e3 /uL 0.1-0. 9 Not Available [facility] ([facility]) [address] [place], [address], 06/02/2024 07:15:23 06/01/19 25 06/01/2024 CBC WITH DIFFE RENTI AL/PL ATELE T eos (absolute) 0.1 x10e3 /uL 0.0-0. 4 Not Available [facility] ([facility]) [address] [facility], [place], [address], 06/02/2024 07:15:23 06/01/19 25 06/01/2024 CBC WITH DIFFE RENTI AL/PL ATELE T baso (absolute) 0.0 x10e3 /uL 0.0-0. 2 Not Available [facility] ([facility]) [address] [place], [address], 06/02/2024 07:15:23 06/01/19 25 06/01/2024 CBC WITH DIFFE RENTI AL/PL ATELE T immature granulocytes 0 % notest ab. Not Available [facility] ([facility]) [address] [facility], [place], [address], 06/02/2024 07:15:23 06/01/19 25 06/01/2024 CBC WITH DIFFE RENTI AL/PL ATELE T immature grans (abs) 0.0 x10e3 /uL 0.0-0. 1 Not Available [facility] ([facility]) [address] [place], [address], 06/02/2024 07:15:23 06/01/19 25 06/02/2024 VITAM IN D, 25-HY DROXY vitamin D, 25-hydroxy 47.8 NG/mL 30.0-1 00.0 Vitam in D defic iency has been defin ed by the Insti tute of Medic ine and an Endoc rine Socie ty pract ice guide line as a level of serum 25-OH vitam in D less than 20 ng/mL (1,2) . The Endoc rine Socie ty went on to furth er defin e vitam in D insuf ficie ncy as a level betwe en 21 and 29 ng/mL (2). 1. IOM (Inst itute of Medic ine). 2010. Dieta ry refer ence intak es for calci um and D. Maddi huffman [place]: [facility] . 2. Timbo mata MF, Shira harrell [place], Bisch off-F errar i LANDIN, et al. Evalu ation , treat ment, and preve ntion of vitam in D defic iency : an Endoc rine Socie ty clini augustina pract ice guide line. JCEM. 2010; 96(7) :1911 -30. Not Available [facility] ([facility]) [address] [facility], [place], [address], 06/02/2024 07:15:24 04/23/20 22 04/23/2022 US, thyro id No observ ation record ed. [address], [address], 04/22/2023 09:44:28 07/03/19 23 07/02/2022 exerc ise stres s test No observ ation record ed. [address], [address], 07/02/2022 18:38:39 07/05/19 23 07/04/2022 fine needl e aspir ation , ultra sound guide d, thyro id (PROC ) No observ ation record ed. [address], [address], 04/22/2023 09:44:37 07/13/19 23 07/04/2022 fine needl e aspir ation , ultra sound guide d, neck mass (PROC ) No observ ation record ed. [address], [address], 04/22/2023 09:44:39 09/04/19 23 09/03/2022 weston VALLE bilat eral No observ ation record ed. [facility] [address], [place], [address], 04/22/2023 09:44:47 Result Notes None recorded. Problems Name Problem SNOMED Code Status Onset Date Resolution Date Notes Provider Name and Address Organization Details Recorded Time Knee pain Active 2017 Cedrick Huffman MD Attn: Lily sheehan,[address] [facility], [place], [address], [place] [facility] 8 19:10:30 Type 2 diabetes mellitus without complication 314835137 Active 2019 Cedrick Huffman MD Attn: Lily sheehan,[address] [facility], [place], [address], [place] [facility] 5 10:37:30 Elevated blood-pressure reading without diagnosis of hypertension 753711727 Active 2019 Cedrick Huffman MD Attn: Lily sheehan,[address] [facility], [place], [address], [place] [facility] 0 18:25:06 Leukocytosis 015451769 Active 2021 Cedrick Huffman MD Attn: Lily sheehan,[address] [facility], [place], [address], [place] [facility] 2 11:09:37 Thyroid nodule 930832253 Active 2022 Cedrick Huffman MD Attn: Lily sheehan,[address] [facility], [place], [address], [place] [facility] 5 10:37:34 Type 2 diabetes mellitus 07041773 Active 2011 Yolanda Newton MA null, [place] [facility] 7 10:49:47 Problem Notes None recorded. Procedures Surgical History Date Name Laterality Status Provider Name and Address Organization Details Recorded Time 5 Diabetic Foot Exam completed Cedrick Huffman MD Attn: Accounting,[address], [place], [address], [place] [facility] 06/01/2024 11:09:24 4 colonoscopy completed Cedrick Huffman MD Attn: Accounting,[address], [place], [address], [place] [facility] 05/14/2023 11:24:18 3 Diabetic Foot Exam completed Cedrick Huffman MD Attn: Accounting,[address], [place], [address], [place] [facility] 04/22/2023 10:04:03 3 Date of Last Pap Smear completed Elsa Lord MA [place] [facility] 05/16/2022 10:02:14 Imaging Results Imaging Date Name Status LastModified by Organiz ation Details LastModified Time 04/23/2022 US, thyroid completed [address] [place] [address], [address], 04/22/2023 09:44:28 07/02/2022 exercise stress test completed [address], [address], 07/02/2022 18:38:39 07/04/2022 fine needle aspiration, ultrasound guided, thyroid (PROC) completed [address], [address], 04/22/2023 09:44:37 07/04/2022 fine needle aspiration, ultrasound guided, neck mass (PROC) completed [address], [address], 04/22/2023 09:44:39 09/03/2022 MAMMO, screening, bilateral completed [address], [address], 04/22/2023 09:44:47 Procedure Notes None recorded. Medical Equipment None Reported. Allergies Allergen ID Allergen Name Allergen Category Reaction Reaction Severity Criticality Documentation Date Start Date Code Code System Note Provider Name and Address Organization Details Recorded Time 881480 lisinopri l medicatio n Not available Not available Not available 07/21/2019 58786 RxNorm Hair loss Not Available Not Available Not Available 726572 Farxiga medicatio n Not available Not available low 04/22/2023 92490 72 RxNorm Vagin al armani diasi s Not Available Not Available Not Available Medications Name Sig Start Date Stop Date Status Note LastModified by Organization Details LastModified Time losartan 50 mg tablet TAKE ONE TABLET BY MOUTH EVERY MORNING FOR BLOOD PRESSURE 2024 active Not Available Not Available Not Avai lable metformin 500 mg tablet TAKE ONE TABLET BY MOUTH TWICE A DAY 04/22 completed Not Available Not Available Not Available fluconazo le 150 mg tablet TAKE ONE TABLET BY MOUTH 04/22 completed Not Available Not Available Not Available Zithromax Z-Nino 250 mg tablet TAKE 2 TABLETS (500 MG) BY ORAL ROUTE ONCE DAILY FOR 1 DAY THEN 1 TABLET (250 MG) BY ORAL ROUTE ONCE DAILY FOR 4 DAYS 02/10 completed Not Available Not Available Not Available glimepiri de 2 mg tablet TAKE 1 TABLET BY MOUTH EVERY DAY WITH MEALS FOR 90 DAYS 05/16 completed Not Available Not Available Not Available glimepiri de 1 mg tablet TAKE ONE TABLET BY MOUTH TWICE DAILY EVERY MORNING & EVENING WITH FOOD FOR DIABETES 06/01 completed Not Available Not Available Not Available pravastat in 10 mg tablet TAKE ONE TABLET BY MOUTH EVERY DAY TO LOWER CHOLESTE ROL 05/16 completed Not Available Not Available Not Available OneTouch Ultra Test strips USE TO CHECK BLOOD SUGAR THREE TIMES A DAY, MORNING, MIDDAY AND BEDTIME active Not Available Not Available No t Available dexametha sone 1 mg tablet TAKE 1 TABLET BY MOUTH AT 10PM THE NIGHT BEFORE THE 8AM CORTISOL 04/22 completed Not Available Not Available Not Available metformin 1,000 mg tablet TAKE 1 TABLET BY MOUTH TWICE A DAY DIRECTED 2024 active Not Available Not Available Not Avai lable nystatin 100,000 unit/gram topical cream APPLY TO AFFECTED AREAS TWICE DAILY 04/22 completed Not Available Not Available Not Available losartan 25 mg tablet TAKE 1 TABLET BY MOUTH EVERY DAY DIRECTED 05/16 completed Not Available Not Available Not Available rosuvasta tin 10 mg tablet TAKE ONE TABLET BY MOUTH EVERY NIGHT AT BEDTIME TO LOWER CHOLESTE ROL active Not Available Not Available No t Available Alcohol Prep Pads USE TO CLEAN THE INJECTIO N SITE OF INSULIN AND WHEN CHECKING BLOOD SUGAR active Not Available Not Available No t Available Vitamin D3 OTC active Not Available Not Available Not Available Januvia 100 mg tablet TAKE ONE TABLET BY MOUTH EVERY DAY FOR DIABETES 04/22 completed Not Available Not Available Not Available Vitamin D3 50 mcg (2,000 unit) tablet Take 1 tablet every day by oral route at bedtime for 90 days, for Vitamin D deficien cy. 06/01 completed Not Available Not Available Not Available Gavilyte- C 240 gram-22.7 2 gram-6.72 gram-5.84 gram oral solution 07/21 completed Not Available Not Available Not Available sodium,po tassium,m ag sulfates 17.5 gram-3.13 gram-1.6 gram oral soln Take 300 mL by oral route for 1 day. 07/21 completed Not Available Not Available Not Available Tradjenta 5 mg tablet Take 1 tablet every day by oral route as directed for 30 days. 12/13 completed Appt schedule d for 2. Not Available Not Available Not Available TRUEplus Lancets 33 gauge USE TO CHECK BLOOD SUGAR THREE TIMES A DAY, MORNING, MIDDAY AND BEDTIME active Not Available Not Available No t Available Farxiga 10 mg tablet TAKE 1 TABLET BY MOUTH EVERY DAY IN THE MORNING 04/22 completed yeast infectio ns Not Available Not Available Not Available Ozempic 0.25 mg or 0.5 mg (2 mg/1.5 mL) subcutane ous pen injector Inject 0.25 mg every week by subcutan eous route as directed for 28 days, for Diabetes . 06/01 completed Not Available Not Available Not Available OneTouch Ultra2 Meter USE TO test blood sugar active Not Available Not Available No t Available ID NOW COVID-19 Test Kit USE DIRECTED 11/20 completed Not Available Not Available Not Available QuickVue At-Home COVID-19 Test kit USE DIRECTED PER PACKAGE DIRECTMAYA KEY 04/22 completed Not Available Not Available Not Available Ozempic 0.25 mg or 0.5 mg (2 mg/3 mL) subcutane ous pen injector INJECT 0.5MG SUBCUTAN EOUSLY EVERY WEEK active She just upped it to the 1 06/01/2024 Not Available Not Available Not Available Vitals Date Recorded Body height Body mass index (BMI) Body weight Body temperature Oxygen saturation Oxygen saturation in Arterial blood by Pulse oximetry Heart rate Systolic blood pressure Diastolic blood pressure Provider Name and Address Organization Details Last Updated DateTime 2 161.29 cm 36.4 kg/m2 60315.8 1 g 98.2 [degF] 98 % 98 % 84 /min 142 mm[Hg] 90 mm[Hg] Darren Delgado MA [facility] 2 10:06:29 Date Recorded Body height Body mass index (BMI) Body weight Systolic blood pressure Diastolic blood pressure Provider Name and Address Organization Details Last Updated DateTime 05/16/2022 161.29 cm 34.3 kg/m2 02098.7 g 130 mm[Hg] 84 mm[Hg] Elsa Lord MA [facility] 3 10:13:14 Date Recorded Body height Body mass index (BMI) Body weight Heart rate Oxygen saturation Oxygen saturation in Arterial blood by Pulse oximetry Body temperature Systolic blood pressure Diastolic blood pressure Provider Name and Address Organization Details Last Updated DateTime 3 161.29 cm 35.7 kg/m2 93144.7 2 g 92 /min 98 % 98 % 98.6 [degF] 112 mm[Hg] 80 mm[Hg] Yolanda Newton MA [facility] 3 09:40:22 Date Recorded Body height Body mass index (BMI) Body weight Heart rate Oxygen saturation Oxygen saturation in Arterial blood by Pulse oximetry Systolic blood pressure Diastolic blood pressure Provider Name and Address Organization Details Last Updated DateTime 4 161.29 cm 35.4 kg/m2 05713.2 5 g 88 /min 97 % 97 % 128 mm[Hg] 86 mm[Hg] Erica Allred MA [facility] 4 09:27:42 Date Recorded Body height Body mass index (BMI) Body weight Respiratory rate Oxygen saturation Oxygen saturation in Arterial blood by Pulse oximetry Heart rate Body temperature Systolic blood pressure Diastolic blood pressure Provider Name and Address Organization Details Last Updated DateTime 5 161.29 cm 30.3 kg/m2 59098.3 5 g 16 /min 97 % 97 % 84 /min 97.8 [degF] 110 mm[Hg] 70 mm[Hg] Yolanda Newton [place] [facility] 5 10:15:25 Social History Question Answer Notes LastModified by Organizat ion Details LastModified Time Tobacco Smoking Status Never Smoker Yolanda Newton MA null, [place] - [facility] 01/13/2017 10:51:03 Do You Have An Advance Directive? No Information not available 05/16/2022 What Is Your Level Of Alcohol Consumption? None Information not available 01/13/2017 What Is Your Level Of Caffeine Consumption? Occasional Information not available 01/13/2017 What Type Of Diet Are You Following? REGULAR Information not available 01/13/2017 Do You Or Have You Ever Used E-cigarettes Or Vape? Never Used Electronic Cigarettes Information not available 07/21/2019 Marital Status Informatio n not available 01/13/2017 What Was The Date Of Your Most Recent Tobacco Screening? 06/01/2024 Information not available 06/01/2024 What Is Your Relationship Status? Information not available 05/16/2022 Are You Sexually Active? Yes Information not available 05/16/2022 Do You Have Smoke And Carbon Monoxide Detectors In Your Home? Yes Information not available 05/16/2022 Are You Passively Exposed To Smoke? No Information no t available 05/16/2022 Do You Or Have You Ever Used Smokeless Tobacco? Never Used Smokeless Tobacco Information not available 07/21/2019 How Much Tobacco Do You Smoke? No Information not available 01/13/2017 Do You Use Any Illicit Or Recreational Drugs? No Information not available 05/16/2022 Has Tobacco Cessation Counseling Been Provided? No Information not available 05/16/2022 On What Date Was Tobacco Cessation Counseling Provided? 06/01/2024 Information not available 06/01/2024 How Many Years Have You Smoked Tobacco? 0 Information not available 01/13/2017 Do You Or Have You Ever Used Any Other Forms Of Tobacco Or Nicotine? No Information not available 05/16/2022 Sex: Unknown Functional Status Question Answer Note LastModified by Organizat ion Details LastModified Time What is your exercise level? Occasional Information not available 01/13/2017 Mental Status None recorded. Family History Relationship Description Onset Age of this Age Resolved Age Notes LastModified by Organization Details LastModified Time Mother Diabetes mellitus [email or web address] Not available 2016 10:50:01 Mother Hypertensive disorder hdoverma Not available 2016 10:50:24 Mother Hypercholest erolemia hdoverma Not available 2016 10:50:38 Mother Disorder of thyroid gland hdoverma Not available 2016 10:50:52 Brother Diabetes mellitus hdoverma Not available 2016 10:50:09 Sister Diabetes mellitus hdoverma Not available 2016 10:50:12 Sister Hypertensive disorder hdoverma Not available 2016 10:50:29 Sister Hypercholest erolemia hdoverma Not available 2016 10:50:42 Father Alcohol abuse hdoverma Not available 2016 10:50:58 Medical History Condition Response Coronary Artery Disease N Other N High Blood Pressure N Atrial Fibrillation N Kidney or Bladder Problems N Thyroid Problems N GI Problems N Depression N COPD N Blood Clots N Skin Problems N Anemia N Heart Attack (DC) N Anxiety Disorder N Diabetes Y Muscle, Joint, or Bone Problems N Seizures/Epilepsy N Acid Reflux (GERD) Y Cancer N Stroke N Asthma N Allergies N High Cholesterol N Hepatitis N Liver Disease N Headaches N Heart Failure N Osteoporosis N Gynecological History Statement/Question Response Date of Last Mammogram Date of LMP 04/29/2011 Menses Monthly N Date of Last Pap Smear 05/16/2022 Current Control Method Menopause LMP Unknown Obstetrics History GPAL:G 4 P 4 0 0 3 Type Value Multiple Births 0 Full Term 4 Induced 0 Spontaneous 0 Premature 0 Living 3 Ectopics 0 Total 4 Immunizations Vaccine Type Date Status Note Provider Nam e and Address Organization Details Recorded Time COVID-19, mRNA, LNP-S, PF, 30 mcg/0.3 mL dose 1 completed Cedrick Huffman MD Attn: [address] [place], [address], [place] [facility] 12/13/2021 10:36:34 COVID-19, mRNA, LNP-S, PF, 30 mcg/0.3 mL dose 1 completed Cedrick Huffman MD Attn: [address] [place], [address], [place] [facility] 12/13/2021 10:36:34 Influenza, split virus, quadrivalent, preservative 7 completed Not Available [facility] 05/15/2019 02:40:23 pneumococcal polysaccharide PPV23 7 completed Not Available [facility] 05/15/2019 02:47:58 Influenza, split virus, quadrivalent, PF 8 completed Not Available [facility] 05/15/2019 02:36:27 Tdap 8 completed Not Available [facility] 05/15/2019 02:36:27 Influenza, split virus, quadrivalent, preservative 2 completed Cedrick Huffman MD Attn: [address] [place], [address], [place] [facility] 01/21/2022 10:53:56 Pneumococcal conjugate PCV20, polysaccharide [id number] conjugate, adjuvant, PF 5 completed Cedrick Huffman MD Attn: [address] [place], [address], [place] [facility] 06/01/2024 11:17:12 Past Encounters Encounter ID Performer Location Encounter Start Date Encounter Closed Date Diagnosis/Indication Diagnosis SNOMED-CT Code Diagnosis ICD10 Code Diagnosis Note [id number] Cedrick Huffman MD [facility] (Adult Med) [address] [place] [address] 01/13/2017 10:31:30 01/13/2017 11:42:12 Adult health examination 237417285 Z00.01 Overweight 684934797 E66 .3 Screening for malignant neoplasm of breast 080249542 Z12.31 Screening for malignant neoplasm of colon 698124512 Z12.11 Uncontroll ed type 2 diabetes mellitus 079246500 E11.65 Restart Januvia, continue Metformin Influenza vaccine needed 0431411341 106 Z23 Screening for malignant neoplasm of cervix 114328233 Z12.4 [id number] [facility] [address] [place] [id number] 02/24/2017 11:13:01 02/24/2017 12:15:10 Uncontrolled type 2 diabetes mellitus 229985950 E11.65 Unable to tolerate 1000 mg of Metformin, her HBA1C of 13 is concerning , she will do better with her diet and I will see her back in 6 weeks. She is to continue Januvia 100 mg po daily and Metformin 500 mg po bid. Acute bronchitis 9715551 2 J20.9 [id number] [facility] [address] [place] [address] 02/10/2018 16:51:50 02/10/2018 17:47:21 Administration of influenza vaccine 80615895 Z23 Type 2 romina betes mellitus 35265203 E11.9 Administra tion of diphtheria, pertussis, and tetanus vaccine 958635028 Z23 Screening for malignant neoplasm of breast 930365146 Z12.31 Screening for malignant neoplasm of colon 778863701 Z12.11 Screening for malignant neoplasm of cervix 552209869 Z12.4 Knee pain 89563106 M25.5 69 [id number] MD Michael Broussard (Adult Med) [address] [place] [phone] 04/22/2018 14:54:32 04/23/2018 09:32:17 Type 2 diabetes mellitus 19726431 E11.9 Add Amaryl back to Metformin and Januvia [id number] MD Michael Broussard (Adult Med) [address] [place] [phone] 07/21/2019 15:27:24 07/21/2019 16:19:10 General examination of patient 071401268 Z00.01 Type 2 romina betes mellitus without complication 604192718 E11.9 Elevated blood-pressure reading without diagnosis of hypertension 116952034 R03.0 Screening for malignant neoplasm of breast 372496676 Z12.31 Screening for malignant neoplasm of colon 046096444 Z12.11 Pain of ri ght shoulder joint 1677292721 6753816 M25.511 Type 2 romina betes mellitus 09848728 E11.9 On Amaryl, Metformin and Januvia [id number] MD Michael Broussard (Adult Med) [address] [place] [address] 11/20/2020 09:33:27 11/22/2020 12:21:11 General examination of patient 855362521 Z00.01 Immunization advised 310 386100 Z71.9 Type 2 romina betes mellitus without complication 083886040 E11.9 Screening for malignant neoplasm of colon 142416335 Z12.11 Screening for malignant neoplasm of breast 209984572 Z12.31 Screening for malignant neoplasm of cervix [id number] Z12.4 [id number] Cedrick Huffman [facility] [address] [place] [phone] 12/13/2021 10:18:02 12/14/2021 12:41:38 Screening for malignant neoplasm of breast [id number] Z12.31 Type 2 romina betes mellitus without complication 748353135 E11.9 HBA1C 8.3 (11/20/20)O n Amaryl, Metformin and JanuviaSto p Pravastati nStart Rosuvastat inLabs Leukocytosis 488092906 D 72.829 Labs General ex amination of patient 694597650 Z00.01 Immunization advised 310 437958 Z71.9 Type 2 romina betes mellitus 35051185 E11.9 On Amaryl, Metformin and Januvia Bilateral shoulder joint pain [id number] 4363545 M25.511 M25.512 Bicipital groove tendonitis ? [id number] MD Michael Broussard (Adult Med) [address] [place] [id number] 01/17/2022 09:42:55 01/18/2022 14:31:15 Type 2 diabetes mellitus 13028462 E11.9 On Amaryl 1 mg, Metformin and JanuviaNot keen on Ozempic or adding on a different agentIncre ase Amaryl to 2 mg, side effects were discussedL absEndocri nologist Benign hypertension 1072 5009 I10 Start Losartan, side effects were discussed Abnormal urinalysis 1672 10722 R82.90 Asymptomat ic Screening for malignant neoplasm of colon 326449007 Z12.11 Immunization advised 310 125451 Z71.9 Administra tion of influenza vaccine 34756998 Z23 Body mass index 30+ - obesity 381807654 Z68.36 Screening for malignant neoplasm of cervix 403797287 Z12.4 Leukocytosis 511781914 D 72.829 Chronic, but her last set of labs included an abnormal UA.If her leukocytos is persists, she may need to be seen by the hematologi [id number] TIFFANIE MCCORMICK (MICROBIOLOGY LAB ANALYST) [address] [place] [phone] 0 05/16/2022 09:45:23 05/30/2022 10:30:34 Gynecologic examination 87910457 Z01.419 Cervical cancer screening: Last Pap ~2011 normal per pt report, updated todayBreas t cancer screening: Reviewed recommenda tions for initiation at age 40 with annual screening. Has upcoming mammogram Mayolono scopy: scheduledD iet/exerci se: Counseled regarding importance of physical activity, healthy diet and appropriat e calcium intake.RTC in 1yr Vulvovaginitis 49408887 N76.0 PE WNL. Will treat empiricall y for yeast, f/u with culture results. Hygiene discussed. [id number] MD Michael Broussard (Adult Med) [address] [place] [phone] 0 04/22/2023 09:27:29 04/22/2023 10:18:47 Type 2 diabetes mellitus without complication 657160043 E11.9 HBA1C 8.7%On Amaryl 1 mg, Metformin. Previously on JanuviaUna ble to tolerate Farxiga (Vaginal candidiasi s)Previous ly refused Ozempic.La bsEndocrin ology OV 01/17/2022H BA1C 8.3 (11/20/20)O n Amaryl, Metformin and JanuviaSto p Pravastati nStart Rosuvastat inLabs 11/01/2021e e the messageApp t scheduled for 12/13/2021. Complete the current supply of Januvia.St art Tradgustavo. Previous visitUnabl e to tolerate 1000 mg of Metformin, her HBA1C of 13 is concerning , she will do better with her diet and I will see her back in 6 weeks. She is to continue Januvia 100 mg po daily and Metformin 500 mg po bid. Benign hypertension 1072 5009 I10 Continue Losartan. Screening for malignant neoplasm of colon 256676157 Z12.11 Administra tion of influenza vaccine 50332580 Z23 Body mass index 30+ - obesity 682843993 Z68.36 Overweight 347277029 E66 .3 Thyroid nodule 108501260 E04.1 Negative Bx Vitamin D deficiency 347 47145 E55.9 General ex amination of patient 012634157 Z00.01 SARS-CoV-2 mRNA vaccine declined 3982726421 Z28.21 Leukocytosis 098228730 D 72.829 She was referred to the hematologi but she is yet to make an appointmen t. Note from 01/21/2022L abs WBC 12, Urine cultured mixed leonarda 01/17/22Chr onic, but her last set of labs included an abnormal UA.If her leukocytos is persists, she may need to be seen by the hematologi [id number] Cedrick Huffman MD [facility] [address] [place] [phone] 07/22/2023 09:13:18 07/23/2023 18:55:35 Type 2 diabetes mellitus without complication 408022206 E11.9 Uncontroll ed DM, her HBA1C is now 11.2% ( 3)Change Amaryl to 1mg po BID with meals, she had used this before while under the care of the endocrinol ogist.Cont inue Metformin. She has no history of Thyroid cancerStar t Ozempic, detailed discussion about the mechanisms of action and the GI side effects OV 04/22/2023 HBA1C 8.7%On Amaryl 1 mg, Metformin. Previously on JanuviaUna ble to tolerate Farxiga (Vaginal candidiasi s)Previous ly refused Ozempic.La bsEndocrin ology OV 01/17/2022H BA1C 8.3 (11/20/20)O n Amaryl, Metformin and JanuviaSto p Pravastati nStart Rosuvastat inLabs 11/01/2021e e the messageApp t scheduled for 12/13/2021. Complete the current supply of Januvia.St art Dilshad. Previous visitUnabl e to tolerate 1000 mg of Metformin, her HBA1C of 13 is concerning , she will do better with her diet and I will see her back in 6 weeks. She is to continue Januvia 100 mg po daily and Metformin 500 mg po bid. Body mass index 30+ - obesity 553230209 Z68.36 Overweight 731245227 E66 .3 Leukocytosis 290180702 D 72.829 Unexplaine d and persistent Recheck UA and treat if positive as there is no obvious explanatio n.If the leukocytos is persists, she may once again need [facility] OV 04/22/2023 [facility] but she is yet to make an appointmen t. Note from 01/21/2022L abs WBC 12, Urine cultured mixed leonarda 01/17/22Chr onic, but her last set of labs included an abnormal UA.If her leukocytos is persists, [facility] Abnormal urinalysis 1672 59742 R82.90 Mainly asymptomat ic.Repeat the UA and treat if positive as there is no obvious explanatio n.If the leukocytos is persists, she may once again need another referral back to the [facility]. Vitamin D deficiency 347 78729 E55.9 [id number] MD Michael Broussard (Adult Med) [address] [place] [phone] 06/01/2024 10:06:38 06/14/2024 13:20:35 General examination of patient 837349178 Z00.01 Type 2 romina betes mellitus without complication 010455501 E11.9 Labs 05/28/2024 HBA1C 7.3%Manage d by the endocrinol ogist OV 07/22/2023U ncontrolle d DM, her HBA1C is now 11.2% ( 3)Change Amaryl to 1mg po BID with meals, she had used this before while under the care of the endocrinol ogist.Cont inue Metformin. She has no history of Thyroid cancerStar t Ozempic, detailed discussion about the mechanisms of action and the GI side effects OV 04/22/2023 HBA1C 8.7%On Amaryl 1 mg, Metformin. Previously on JanuviaUna ble to tolerate Farxiga (Vaginal candidiasi s)Previous ly refused Ozempic.La bsEndocrin ology OV 01/17/2022H BA1C 8.3 (11/20/20)O n Amaryl, Metformin and JanuviaSto p Pravastati nStart Rosuvastat inLabs 11/01/2021e e the messageApp t scheduled for 12/13/2021. Complete the current supply of Januvia.St art Tradjenta. Previous visitUnabl e to tolerate 1000 mg of Metformin, her HBA1C of 13 is concerning , she will do better with her diet and I will see her back in 6 weeks. She is to continue Januvia 100 mg po daily and Metformin 500 mg po bid. Leukocytosis 879744165 D 72.829 Recheck labs OV 07/22/2023U nexplained and persistent Recheck UA and treat if positive as there is no obvious explanatio n.If the leukocytos is persists, she may once again need another [facility]. OV 04/22/2023 [facility] but she is yet to make an appointmen t. Note from 01/21/2022L abs WBC 12, Urine cultured mixed leonarda 01/17/22Chr onic, but her last set of labs included an abnormal UA.If her leukocytos is persists, [facility] Vitamin D deficiency 347 98862 E55.9 Screening for malignant neoplasm of breast 831181482 Z12.31 Weight loss 02222400 R63 .4 Most likely due to the Ozempic and her job at the [employer]. NL TSH 4Col onoscopy 05/14/2023M MG ordered Administra tion of pneumococcal vaccine 96055178 Z23 Thyroid nodule 439914685 E04.1 Negative Bx Health Concerns Section Related Observation LastModified by Organization Detai ls LastModified Time None Recorded Concern Status LastModified by Organization Details LastModified Time None Recorded Advance Directives Directive N: Payers Encounter Date Sequence Insurance Name Policy Number Policy Tompkins Covered Member ID Tompkins Member ID Guarantor Name 01/17/2022 1 [employer] (PPO) [id number] Elaina Bender [id number] Elaina Bender 05/16/2022 1 [employer] (PP[employer]) [id number] Elaina Bender [id number] Elaina Bender 04/22/2023 1 [employer] (PPO) [id number] Elaina Bender [id number] Elaina Bender 07/22/2023 1 [facility] (MEDICARE REPLACEMENT/A DVANTAGE - HMO) [id number] Elaina Bender [id number] Elaina Bender 06/01/2024 1 [facility] (MEDICARE REPLACEMENT/A DVANTAGE - HMO) [id number] Elaina Bender [id number] Elaina Bender 06/01/2024 1 MEDICA[place]: [facility] Elaina Bender [id number] Elaina Bender Notes Date Note Type Note Provider Name and Address Organization Details Recorded Time 01/17/2022 text/html Diabetes F/URepo rted bypatient.Review finger sticks:fastin Labs:last A1C result: 13 Context:taking aspirin daily; not missing doses of medications; no side effects from medications Associated Symptoms:no weight gain; no dizziness; no sweats; no headaches; no confusion; no increased thirst; no increased appetite; no increased urination; no blurred vision; no numbness of feet; no calluses on feet;weight loss (3 lbs) I don't like injections My mom and my sister both had an ranch helper Ms Bender has made canges in her diet and she is more active, her blood sugars are also better. Cedrick Huffman MD Attn: [address] [place], [address], [facility] 01/21/2022 10:54:18 05/16/2022 text/html Annual GYNReport ed bypatient.Menstrual cycle:postmenopausal, no AUB Urinary symptoms:No hematuria; No incontinence Vulva:irritation Vagina:Normal vaginal discharge Breast:No breast pain; No breast lump; No nipple discharge Sexual complaints:No sexual complaints; No pain during intercourse; Normal libido Menopausal Symptoms:No menopausal symptoms; Normal vaginal lubrication Psychological symptoms:No depression; No anxiety; No PMDD Preventive measures:Encourage self breast examination; Encourage regular exercise; Encourage regular mammograms starting age [age]yo F with h/o DM2, HTN, obesity presenting for wwe/pap. She has not had pap in about 10 years, does not recall abnormals. Upcoming mammogram and colonoscopy scheduled. Reports mild vulvar irritation and itchiness x 3 weeks that feels similar to yeast infections in the past. Denies pain with sex, discharge, dryness, and urinary or bowel changes. TIFFANIE MCCORMICK Attn: [address] [place], [address], [facility] 05/28/2022 13:40:32 04/22/2023 text/html Diabetes F/URepo rted bypatient.Labs:last A1C result: 8.7 Context:normal range of home blood sugars (in the low 100s); seeing eye doctor regularly; checking feet regularly Associated Symptoms:no weight loss; no dizziness; no sweats; no headaches; no confusion; no increased thirst; no increased appetite; no increased urination; no blurred vision; no numbness of feet; no calluses on feet;weight gain (7 lbs) My annual check up time I have got to do the eye exam and I still got to do the colonoscopy Ms Bender is doing well, she could not tolerate the lower dose of Farxiga prescribed by her ranch helper who has since retired, due to vaginal candidiasis. She had a biopsy of her Thyroid nodule it was benign and was also seen by her auto wash buffer. She was referred to the contracting manager for her persistent leukocytosis, but she is yet to make an appointment. Cedrick Huffman MD Attn: [address] [place], [address], [place] [facility] 04/22/2023 10:35:57 07/22/2023 text/html Diabetes F/URepo rted bypatient.Review finger sticks:fastin Labs:last A1C result: 11.2 Context:taking aspirin daily; not missing doses of medications; no side effects from medications;home blood sugar range high Associated Symptoms:no weight gain; no weight loss; no dizziness; no sweats; no headaches; no confusion; no increased thirst; no increased appetite; no increased urination; no blurred vision; no numbness of feet; no calluses on feet It was supposed to be a follow up Cedrick Huffman MD Attn: [address] , [place], [address], [facility] 07/22/2023 11:45:43 06/01/2024 text/html Diabetes F/URepo rted bypatient.Review finger sticks:fastin Labs:last A1C result: 7.3% Context:normal range of home blood sugars (in the low 100s); seeing eye doctor regularly; checking feet regularly; not missing doses of medications; no side effects from medications Associated Symptoms:no weight gain; no dizziness; no sweats; no headaches; no confusion; no increased thirst; no increased appetite; no increased urination; no blurred vision; no numbness of feet; no calluses on feet;weight loss (30 lbs)Medicare Annual Wellness VisitReported bypatient.Diet and Nutrition:healthy diet; discussed vitamin and supplement use Fracture Risk:no history of fractures; no recent explained fracture; no sudden unexplained fractures; no previous musculoskeletal injuries Physical Activity:exercises on a regular basis; recent increase in physical activity; good physical condition Depression Risk:never feels sad, empty, or tearful; no loss of interest in activities; no significant changes in weight; no sleep disturbances or insomnia; no agitation; no loss of energy; no feelings of worthlessness or guilt; no thoughts of suicide; no history of depression; no history of mood disorders Orientation:no disorientation to time; no disorientation to date; no disorientation to place Concentration and Memory:no decreased concentrating ability; no memory lapses or loss; does not forget words Speech/Motor difficulties:no speech difficulties; no difficulty expressing formulated concepts; no difficulty with fine manipulative tasks; no difficulty writing/copying; no slowed reaction time; does not knock things over when trying to pick them up Hearing:no loss of hearing Vision:worse near Activities of Daily Living:able to bathe with limited or no assistance; able to contol urination and bowels; able to dress with limited or no assistance; able to feed self with limited or no assistance; able to get out of chair or bed with limited or no assistance; able to groom with limited or no assistance; able to toilet with limited or no assistance Instrumental Activities of Daily Living:able to do house work with limited or no assistance; able to grocery shop with limited or no assistance; able to manage medications with limited or no assistance; able to manage money with limited or no assistance; able to prepare meals with limited or no assistance; able to use the phone with limited or no assistance Falls Risk Assessment:no frequent falls while walking; no fall in the past year; no fall since last visit; no dizziness/vertigo Home Safety:no unsafe atiya hazzards; no unsafe stairs; no unsafe gas appliances; working smoke/CO detectors; wears protective head gear for biking/high velocity; use of seatbelts; no vision or hearing loss while driving; has hand bars in the bathroom/shower; good lighting in the home Follow up Ms Bender is doing well, her ranch helper discontinued her Glimepiride and increased her Ozempic to 1 mg. She is working at the local [employer] and feels well. Cedrick Huffman MD Attn: [address] [place], [address], [place] [facility] 06/01/2024 11:17:22 OBGyn Episode No OBEpisode recorded.
== END 2024-07-13 10:30 | disposition home or self-care (01) ==
PROVIDERS: PCP Internal Medicine Infectious Disease; Visit Provider Internal Medicine Infectious Disease
DX: E04.2 Nontoxic multinodular goiter (principal)
CPT/HCPCS: 76536